=== PATIENT | female | born 1980 | race Caucasian/White ===

== ENCOUNTER 2018-08-10 21:11 | Emergency (ER) | payer OTHER ==
[~2018-08-10] VITALS: Ht 188 cm; Wt 99.8 kg
[~2018-08-10 21:11] MED LIST: BENZ100C18 PO; CEPH500C PO; CETI10CA PO; DCS100C PO; FRS325T PO; IBP600T1 PO; METH4TAB PO; Oxycodone Hcl/Acetaminophen PO; PREN-52 PO; TRIA10.8 NSEACH
[2018-08-10] MEDS ORDERED: RX-ALBUTEROL INHALER (PROAIR) 8 GM IH STA (21:32)
--- OUTSIDE RECORDS SUMMARY | 2018-08-10 21:38 | XMS REPORT ---
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 Active 693773353 Problem PTSD (post-traumatic stress disorder) F43.10 Active 40052111 Problem Adjustment disorder with anxious mood F43.22 Active 36103097 Problem Severe episode of recurrent major depressive disorder, without psychotic features F33.2 Active 76559622 Problem Adjustment disorder with depressed mood F43.21 Active [id number] ALLERGIES No Information ENCOUNTERS Encounter Location Date Diagnosis [place] [id number] [place] [address]4815- 6966 20 Jan, 2018 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 ; Adjustment disorder with depressed mood F43.21 ; Adjustment disorder with anxious mood F43.22 ; PTSD (post-traumatic stress disorder) F43.10 and Attention deficit hyperactivity disorder (ADHD), unspecified ADHD type F90.9 [facility] [address] [place] [id number] [place] [address] 24680- 5443 Jan, 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 [facility] [id number] [place] [address] 94540- 0926 14 Dec, 2017 Adjustment disorder with anxious mood F43.22 ; Severe episode of recurrent major depressive disorder, without psychotic features F33.2 and Adjustment disorder with depressed mood F43.21 [facility] [id number] [address] 13 Feb, 2018 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 [place] [address] [place] [id number] [place] [address] 93953- 6854 08 Dec, 2017 PTSD (post-traumatic stress disorder) F43.10 ; Adjustment disorder with anxious mood F43.22 ; Severe episode of recurrent major depressive disorder, without psychotic features F33.2 ; Adjustment disorder with depressed mood F43.21 and Disappearance and of family member Z63.4 [place] [address] 9[address]54- 8968 Oct, Adjustment disorder with anxious mood F43.22 and PTSD (post- traumatic stress disorder) F43.10 [place] [address] 45672- 5115 Sep, Adjustment disorder with anxious mood F43.22 and PTSD (post- traumatic stress disorder) F43.10 [place] [address] 14197- 1896 Sep, Adjustment disorder with anxious mood F43.22 and PTSD (post- traumatic stress disorder) F43.10 [place] [address] [place] [id number] [place] [address] 21306- 0613 Aug, Adjustment disorder with anxious mood F43.22 and PTSD (post- traumatic stress disorder) F43.10 [place] [address] [place] [id number] [place] [address] 08753- 7864 Aug, Adjustment disorder with anxious mood F43.22 and PTSD (post- traumatic stress disorder) F43.10 [place] [address] [place] [id number] [place] [address] 26431- 8641 Aug, Adjustment disorder with anxious mood F43.22 [place] [id number] [place] [address] 92053- 0847 Aug, Adjustment disorder with anxious mood F43.22 IMMUNIZATIONS No Known Immunizations SOCIAL HISTORY Never Assessed REASON FOR VISIT f/u PLAN OF CARE Activity Details Follow Up 1 Week Reason:PTSD, adjustment disorder, depression VITAL SIGNS MEDICATIONS Unknown Medications RESULTS No Results PROCEDURES Procedure Date Ordered Result Body Site Psychotherapy, patient &/family, 60 minutes, established patient Aug 26, 2017 INSTRUCTIONS MEDICATIONS ADMINISTERED No Known Medications MEDICAL (GENERAL) HISTORY Type Description Date Medical History ADHD Surgical History c section Surgical History tonsillectomy Surgical History cholecysectomy Surgical History bilateral patella replacement Surgical History back surgery Hospitalization History surgeries,
--- OUTSIDE RECORDS SUMMARY | 2018-08-10 21:38 | XMS REPORT ---
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 Active 076529507 Problem PTSD (post-traumatic stress disorder) F43.10 Active 29092341 Problem Adjustment disorder with anxious mood F43.22 Active 72021439 Problem Severe episode of recurrent major depressive disorder, without psychotic features F33.2 Active 27398001 Problem Adjustment disorder with depressed mood F43.21 Active [id number] ALLERGIES No Information ENCOUNTERS Encounter Location Date Diagnosis [place] [id number] [place] [address] 72009- 7563 20 Jan, 2018 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 ; Adjustment disorder with depressed mood F43.21 ; Adjustment disorder with anxious mood F43.22 ; PTSD (post-traumatic stress disorder) F43.10 and Attention deficit hyperactivity disorder (ADHD), unspecified ADHD type F90.9 [facility] [address] [id number] [place] [address] 98311- 8901 Jan, 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 [facility] [address] [place] [id number] [place] [address] 99722- 8961 14 Dec, 2017 Adjustment disorder with anxious mood F43.22 ; Severe episode of recurrent major depressive disorder, without psychotic features F33.2 and Adjustment disorder with depressed mood F43.21 [facility] [address] [id number] [address] 13 Feb, 2018 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 [place] [address] [place] [id number] [place] [address] 39632- 9514 08 Dec, 2017 PTSD (post-traumatic stress disorder) F43.10 ; Adjustment disorder with anxious mood F43.22 ; Severe episode of recurrent major depressive disorder, without psychotic features F33.2 ; Adjustment disorder with depressed mood F43.21 and Disappearance and of family member Z63.4 [place] [address] 04063- 0406 Oct, Adjustment disorder with anxious mood F43.22 and PTSD (post- traumatic stress disorder) F43.10 [place] [address] 14843- 8710 Sep, Adjustment disorder with anxious mood F43.22 and PTSD (post- traumatic stress disorder) F43.10 [place] [address] 69886- 9223 Sep, Adjustment disorder with anxious mood F43.22 and PTSD (post- traumatic stress disorder) F43.10 [place] [address] [place] [id number] [place] [address] 40411- 4892 Aug, Adjustment disorder with anxious mood F43.22 and PTSD (post- traumatic stress disorder) F43.10 [place] [address] [place] [id number] [place] [address] 94867- 3401 Aug, Adjustment disorder with anxious mood F43.22 and PTSD (post- traumatic stress disorder) F43.10 [place] [address] [place] [id number] [place] [address] 71773- 4443 Aug, Adjustment disorder with anxious mood F43.22 [place] [id number] [place] [address] 96974- 8341 Aug, Adjustment disorder with anxious mood F43.22 IMMUNIZATIONS No Known Immunizations SOCIAL HISTORY Never Assessed REASON FOR VISIT f/u PLAN OF CARE Activity Details Follow Up Next available, 2 Weeks Reason:Depression, anxiety VITAL SIGNS MEDICATIONS Unknown Medications RESULTS No Results PROCEDURES Procedure Date Ordered Result Body Site Psychotherapy, patient &/family, 30 minutes, established patient Oct 23, 2017 INSTRUCTIONS MEDICATIONS ADMINISTERED No Known Medications MEDICAL (GENERAL) HISTORY Type Description Date Medical History ADHD Surgical History c section Surgical History tonsillectomy Surgical History cholecysectomy Surgical History bilateral patella replacement Surgical History back surgery Hospitalization History surgeries,
--- OUTSIDE RECORDS SUMMARY | 2018-08-10 21:38 | XMS REPORT ---
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 Active 772159461 Problem PTSD (post-traumatic stress disorder) F43.10 Active 22291877 Problem Adjustment disorder with anxious mood F43.22 Active 12952155 Problem Severe episode of recurrent major depressive disorder, without psychotic features F33.2 Active 39628220 Problem Adjustment disorder with depressed mood F43.21 Active [id number] ALLERGIES No Information ENCOUNTERS Encounter Location Date Diagnosis [place] [id number] [place] [address] 79872- 5931 20 Jan, 2018 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 ; Adjustment disorder with depressed mood F43.21 ; Adjustment disorder with anxious mood F43.22 ; PTSD (post-traumatic stress disorder) F43.10 and Attention deficit hyperactivity disorder (ADHD), unspecified ADHD type F90.9 [facility] [address] [id number] [place] [address] 16070- 3727 Jan, 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 [facility] [id number] [place] [address] 49676- 8979 14 Dec, 2017 Adjustment disorder with anxious mood F43.22 ; Severe episode of recurrent major depressive disorder, without psychotic features F33.2 and Adjustment disorder with depressed mood F43.21 [facility] [address] [id number] [address] 13 Feb, 2018 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 [place] [address] [id number] [place] [address] 50070- 4728 08 Dec, 2017 PTSD (post-traumatic stress disorder) F43.10 ; Adjustment disorder with anxious mood F43.22 ; Severe episode of recurrent major depressive disorder, without psychotic features F33.2 ; Adjustment disorder with depressed mood F43.21 and Disappearance and of family member Z63.4 [place] [address] 01786- 5875 Oct, Adjustment disorder with anxious mood F43.22 and PTSD (post- traumatic stress disorder) F43.10 [place] [address] 80118- 7620 Sep, Adjustment disorder with anxious mood F43.22 and PTSD (post- traumatic stress disorder) F43.10 [place] [address] 20261- 3593 Sep, Adjustment disorder with anxious mood F43.22 and PTSD (post- traumatic stress disorder) F43.10 [place] [address] [place] [id number] [place] [address] 02903- 4116 Aug, Adjustment disorder with anxious mood F43.22 and PTSD (post- traumatic stress disorder) F43.10 [place] [address] [id number] [place] [address] 85948- 1916 Aug, Adjustment disorder with anxious mood F43.22 and PTSD (post- traumatic stress disorder) F43.10 [place] [address] [id number] [place] [address] 54842- 4656 Aug, Adjustment disorder with anxious mood F43.22 [place] [id number] [place] [address] 02295- 5562 Aug, Adjustment disorder with anxious mood F43.22 IMMUNIZATIONS No Known Immunizations SOCIAL HISTORY Never Assessed REASON FOR VISIT f/u PLAN OF CARE Activity Details Follow Up 1 Week Reason:Anxiety, depression VITAL SIGNS MEDICATIONS Medication Instructions Dosage Frequency Start Date End Date Duration Status Strattera 40 MG Orally Twice a day 1 capsule 12h 13 Dec, 2017 30 days Unknown RESULTS No Results PROCEDURES Procedure Date Ordered Result Body Site Psychotherapy, patient &/family, 45 minutes, established patient February 04, 2018 INSTRUCTIONS MEDICATIONS ADMINISTERED No Known Medications MEDICAL (GENERAL) HISTORY Type Description Date Medical History ADHD Surgical History c section Surgical History tonsillectomy Surgical History cholecysectomy Surgical History bilateral patella replacement Surgical History back surgery Hospitalization History surgeries,
--- OUTSIDE RECORDS SUMMARY | 2018-08-10 21:38 | XMS REPORT ---
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 Active 527801187 Problem PTSD (post-traumatic stress disorder) F43.10 Active 92109657 Problem Adjustment disorder with anxious mood F43.22 Active 02301679 Problem Severe episode of recurrent major depressive disorder, without psychotic features F33.2 Active 87770320 Problem Adjustment disorder with depressed mood F43.21 Active 971656974 ALLERGIES No Information ENCOUNTERS Encounter Location Date Diagnosis [place] [address] [place] [address] 63518- 0013 20 Jan, 2018 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 ; Adjustment disorder with depressed mood F43.21 ; Adjustment disorder with anxious mood F43.22 ; PTSD (post-traumatic stress disorder) F43.10 and Attention deficit hyperactivity disorder (ADHD), unspecified ADHD type F90.9 [facility] [address] [id number] [place] [address] 74720- 6576 Jan, 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 [facility] [address] [id number] [place] [address] 19531- 2090 14 Dec, 2017 Adjustment disorder with anxious mood F43.22 ; Severe episode of recurrent major depressive disorder, without psychotic features F33.2 and Adjustment disorder with depressed mood F43.21 [facility] [address] [id number], [place] [address]- 27[address] 13 Feb, 2018 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 [place] [address] [id number] [place] [address] 24654- 9608 08 Dec, 2017 PTSD (post-traumatic stress disorder) F43.10 ; Adjustment disorder with anxious mood F43.22 ; Severe episode of recurrent major depressive disorder, without psychotic features F33.2 ; Adjustment disorder with depressed mood F43.21 and Disappearance and of family member Z63.4 [place] [address] 93559- 8038 Oct, Adjustment disorder with anxious mood F43.22 and PTSD (post- traumatic stress disorder) F43.10 [place] [address] [id number] [place] [address] 56207- 5623 Sep, Adjustment disorder with anxious mood F43.22 and PTSD (post- traumatic stress disorder) F43.10 [place] [address] 20528- 8559 Sep, Adjustment disorder with anxious mood F43.22 and PTSD (post- traumatic stress disorder) F43.10 [place] [address] [id number] [place] [address] 85829- 9883 Aug, Adjustment disorder with anxious mood F43.22 and PTSD (post- traumatic stress disorder) F43.10 [place] [address] [id number] [place] [address] 37912- 7272 Aug, Adjustment disorder with anxious mood F43.22 and PTSD (post- traumatic stress disorder) F43.10 [place] [address] [id number] [place] [address] 74754- 5857 Aug, Adjustment disorder with anxious mood F43.22 [place] [id number] [place] [address] 27137- 0662 Aug, Adjustment disorder with anxious mood F43.22 IMMUNIZATIONS No Known Immunizations SOCIAL HISTORY Never Assessed REASON FOR VISIT f/u PLAN OF CARE Activity Details Follow Up 2 Weeks Reason:Adjustment disorder VITAL SIGNS MEDICATIONS Unknown Medications RESULTS No Results PROCEDURES Procedure Date Ordered Result Body Site Psychotherapy, patient &/family, 45 minutes, established patient Sep 02, 2017 INSTRUCTIONS MEDICATIONS ADMINISTERED No Known Medications MEDICAL (GENERAL) HISTORY Type Description Date Medical History ADHD Surgical History c section Surgical History tonsillectomy Surgical History cholecysectomy Surgical History bilateral patella replacement Surgical History back surgery Hospitalization History surgeries,
--- OUTSIDE RECORDS SUMMARY | 2018-08-10 21:38 | XMS REPORT ---
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 Active 803801403 Problem PTSD (post-traumatic stress disorder) F43.10 Active 83689222 Problem Adjustment disorder with anxious mood F43.22 Active 06746427 Problem Severe episode of recurrent major depressive disorder, without psychotic features F33.2 Active 89504477 Problem Adjustment disorder with depressed mood F43.21 Active 062789487 ALLERGIES No Information ENCOUNTERS Encounter Location Date Diagnosis [place] [address] [place] [address] 80003- 3050 20 Jan, 2018 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 ; Adjustment disorder with depressed mood F43.21 ; Adjustment disorder with anxious mood F43.22 ; PTSD (post-traumatic stress disorder) F43.10 and Attention deficit hyperactivity disorder (ADHD), unspecified ADHD type F90.9 [facility] [address] [id number] [place] [address] 45562- 1168 Jan, 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 [facility] [id number] [place] [address] 63174- 1068 14 Dec, 2017 Adjustment disorder with anxious mood F43.22 ; Severe episode of recurrent major depressive disorder, without psychotic features F33.2 and Adjustment disorder with depressed mood F43.21 [facility] [id number] [address]- 2620 13 Feb, 2018 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 [place] [address] [place] [id number] [place] [address] 50858- 2681 08 Dec, 2017 PTSD (post-traumatic stress disorder) F43.10 ; Adjustment disorder with anxious mood F43.22 ; Severe episode of recurrent major depressive disorder, without psychotic features F33.2 ; Adjustment disorder with depressed mood F43.21 and Disappearance and of family member Z63.4 [place] [address] 02469- 7864 Oct, Adjustment disorder with anxious mood F43.22 and PTSD (post- traumatic stress disorder) F43.10 [place] [address] [place] [id number] [place] [address] 74476- 8422 Sep, Adjustment disorder with anxious mood F43.22 and PTSD (post- traumatic stress disorder) F43.10 [place] [address] 87939- 7465 Sep, Adjustment disorder with anxious mood F43.22 and PTSD (post- traumatic stress disorder) F43.10 [place] [address] [place] [id number] [place] [address] 28740- 5511 Aug, Adjustment disorder with anxious mood F43.22 and PTSD (post- traumatic stress disorder) F43.10 [place] [address] [place] [id number] [place] [address] 89950- 3942 Aug, Adjustment disorder with anxious mood F43.22 and PTSD (post- traumatic stress disorder) F43.10 [place] [address] [place] [id number] [place] [address] 09044- 1350 Aug, Adjustment disorder with anxious mood F43.22 [place] [id number] [place] [address] 19157- 2593 Aug, Adjustment disorder with anxious mood F43.22 IMMUNIZATIONS No Known Immunizations SOCIAL HISTORY Never Assessed REASON FOR VISIT f/u PLAN OF CARE Activity Details Follow Up 1 Week Reason:Adjustment disorder, anxiety VITAL SIGNS MEDICATIONS Unknown Medications RESULTS No Results PROCEDURES Procedure Date Ordered Result Body Site Psychotherapy, patient &/family, 45 minutes, established patient Sep 11, 2017 INSTRUCTIONS MEDICATIONS ADMINISTERED No Known Medications MEDICAL (GENERAL) HISTORY Type Description Date Medical History ADHD Surgical History c section Surgical History tonsillectomy Surgical History cholecysectomy Surgical History bilateral patella replacement Surgical History back surgery Hospitalization History surgeries,
--- OUTSIDE RECORDS SUMMARY | 2018-08-10 21:38 | XMS REPORT ---
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 Active 673511598 Problem PTSD (post-traumatic stress disorder) F43.10 Active 40819745 Problem Adjustment disorder with anxious mood F43.22 Active 31633611 Problem Severe episode of recurrent major depressive disorder, without psychotic features F33.2 Active 62547557 Problem Adjustment disorder with depressed mood F43.21 Active [id number] ALLERGIES No Information ENCOUNTERS Encounter Location Date Diagnosis [facility] [id number] [place] [address] 20 Jan, 2018 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 ; Adjustment disorder with depressed mood F43.21 ; Adjustment disorder with anxious mood F43.22 ; PTSD (post-traumatic stress disorder) F43.10 and Attention deficit hyperactivity disorder (ADHD), unspecified ADHD type F90.9 [facility] [id number], [place] [address] 13 Jan, 2018 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 [facility] [id number], [place] [address] 14 Dec, 2017 Adjustment disorder with anxious mood F43.22 ; Severe episode of recurrent major depressive disorder, without psychotic features F33.2 and Adjustment disorder with depressed mood F43.21 [facility] [address] [facility] [id number] [address] 13 Dec, 2017 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 [address] [address] [address] [place] [address] 08 Dec, 2017 PTSD (post-traumatic stress disorder) F43.10 ; Adjustment disorder with anxious mood F43.22 ; Severe episode of recurrent major depressive disorder, without psychotic features F33.2 ; Adjustment disorder with depressed mood F43.21 and Disappearance and of family member Z63.4 [place] [id number] [place] [address] 06 Oct, 2017 Adjustment disorder with anxious mood F43.22 and PTSD (post- traumatic stress disorder) F43.10 [place] [address] [address] Sep, Adjustment disorder with anxious mood F43.22 and PTSD (post- traumatic stress disorder) F43.10 [place] [id number] [place] [address] Sep, Adjustment disorder with anxious mood F43.22 and PTSD (post- traumatic stress disorder) F43.10 [place] [id number] [place] [address] Aug, Adjustment disorder with anxious mood F43.22 and PTSD (post- traumatic stress disorder) F43.10 [place] [id number] [place] [address] Aug, Adjustment disorder with anxious mood F43.22 and PTSD (post- traumatic stress disorder) F43.10 [place] [id number] [place] [address] Aug, Adjustment disorder with anxious mood F43.[address] [address] Aug, Adjustment disorder with anxious mood F43.22 IMMUNIZATIONS No Known Immunizations SOCIAL HISTORY Never Assessed REASON FOR VISIT Psychiatric f/u PLAN OF CARE Activity Details Follow Up 3 Weeks-, 4 Weeks Reason: VITAL SIGNS MEDICATIONS Medication Instructions Dosage Frequency Start Date End Date Duration Status Strattera 40 MG Orally Twice a day 1 capsule 12h 13 Dec, 2017 30 days Active RESULTS No Results PROCEDURES Procedure Date Ordered Result Body Site Psychotherapy, patient &/family, with E&M, 30 minutes, established patient January 28, 2018 INSTRUCTIONS MEDICATIONS ADMINISTERED No Known Medications MEDICAL (GENERAL) HISTORY Type Description Date Medical History ADHD Surgical History c section Surgical History tonsillectomy Surgical History cholecysectomy Surgical History bilateral patella replacement Surgical History back surgery Hospitalization History surgeries,
--- OUTSIDE RECORDS SUMMARY | 2018-08-10 21:38 | XMS REPORT ---
Author Author RAYMUNDO [facility] Organization 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 Active 761776359 Problem PTSD (post-traumatic stress disorder) F43.10 Active 59714275 Problem Adjustment disorder with anxious mood F43.22 Active 38996722 Problem Severe episode of recurrent major depressive disorder, without psychotic features F33.2 Active 50635704 Problem Adjustment disorder with depressed mood F43.21 Active 256886794 ALLERGIES Substance Reaction Event Type Date Status Penicillin G Sodium vomiting Drug Allergy Dec, Active Cefdinir non reactive Drug Allergy Dec, Active ENCOUNTERS Encounter Location Date Diagnosis [id number], [place] [address] Jan, 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 [address] [place] [id number] [place] [address] 08 Dec, 2017 PTSD (post-traumatic stress disorder) F43.10 ; Adjustment disorder with anxious mood F43.22 ; Severe episode of recurrent major depressive disorder, without psychotic features F33.2 ; Adjustment disorder with depressed mood F43.21 and Disappearance and of family member Z63.4 [place] [place] [id number] [place] [address] 06 Oct, 2017 Adjustment disorder with anxious mood F43.22 and PTSD (post- traumatic stress disorder) F43.10 [place] [place] [id number] [place] [address] Sep, Adjustment disorder with anxious mood F43.22 and PTSD (post- traumatic stress disorder) F43.10 [address] [place] [id number] [place] [address] Sep, Adjustment disorder with anxious mood F43.22 and PTSD (post- traumatic stress disorder) F43.10 [address] [id number] [place] [address] Aug, Adjustment disorder with anxious mood F43.22 and PTSD (post- traumatic stress disorder) F43.10 [place] [place] [id number] [place] [address] Aug, Adjustment disorder with anxious mood F43.22 and PTSD (post- traumatic stress disorder) F43.10 [place] [place] [id number] [place] [address] Aug, Adjustment disorder with anxious mood F43.22 [address] [address] [place] [address] Aug, Adjustment disorder with anxious mood F43.22 IMMUNIZATIONS No Known Immunizations SOCIAL HISTORY Never Assessed REASON FOR VISIT PLAN OF CARE Activity Details Follow Up 2 Weeks Reason:Depression VITAL SIGNS MEDICATIONS Medication Instructions Dosage Frequency Start Date End Date Duration Status Strattera 40 MG Orally Once a day 1 capsule every morning for one week then take 2 every morning 24h 13 Dec, 2017 30 day(s) Unknown RESULTS No Results PROCEDURES Procedure Date Ordered Result Body Site Psychotherapy, patient &/family, 45 minutes, established patient Jan 01, 2018 INSTRUCTIONS MEDICATIONS ADMINISTERED No Known Medications MEDICAL (GENERAL) HISTORY Type Description Date Medical History ADHD Surgical History c section Surgical History tonsillectomy Surgical History cholecysectomy Surgical History bilateral patella replacement Surgical History back surgery Hospitalization History surgeries,
--- OUTSIDE RECORDS SUMMARY | 2018-08-10 21:38 | XMS REPORT ---
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 Active 156320030 Problem PTSD (post-traumatic stress disorder) F43.10 Active 28552579 Problem Adjustment disorder with anxious mood F43.22 Active 52564152 Problem Severe episode of recurrent major depressive disorder, without psychotic features F33.2 Active 33091803 Problem Adjustment disorder with depressed mood F43.21 Active 540500881 ALLERGIES No Information ENCOUNTERS Encounter Location Date Diagnosis [address] [address] [place] [address] 20 Jan, 2018 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 ; Adjustment disorder with depressed mood F43.21 ; Adjustment disorder with anxious mood F43.22 ; PTSD (post-traumatic stress disorder) F43.10 and Attention deficit hyperactivity disorder (ADHD), unspecified ADHD type F90.9 [facility] [place] [id number] [place] [address] Jan, 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 [facility] [place] [id number] [place] [address]- [address] 14 Dec, 2017 Adjustment disorder with anxious mood F43.22 ; Severe episode of recurrent major depressive disorder, without psychotic features F33.2 and Adjustment disorder with depressed mood F43.21 [facility] [place] [id number], [place] [address] 13 Dec, 2017 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 [place] [place] [id number] [place] [address] 08 Dec, 2017 PTSD (post-traumatic stress disorder) F43.10 ; Adjustment disorder with anxious mood F43.22 ; Severe episode of recurrent major depressive disorder, without psychotic features F33.2 ; Adjustment disorder with depressed mood F43.21 and Disappearance and of family member Z63.4 [place] [address] [address] 06 Oct, 2017 Adjustment disorder with anxious mood F43.22 and PTSD (post- traumatic stress disorder) F43.10 [place] [id number] [place] [address]- [address] Sep, Adjustment disorder with anxious mood F43.22 and PTSD (post- traumatic stress disorder) F43.10 [place] [address] [address] Sep, Adjustment disorder with anxious mood F43.22 and PTSD (post- traumatic stress disorder) F43.10 [place] [id number] [place] [address]- [address] Aug, Adjustment disorder with anxious mood F43.22 and PTSD (post- traumatic stress disorder) F43.10 [place] [place] [id number] [place] [address]16[address]- [address] Aug, Adjustment disorder with anxious mood F43.22 and PTSD (post- traumatic stress disorder) F43.10 [place] [place] [id number] [place] [address] 86[address]- [address] Aug, Adjustment disorder with anxious mood F43.22 [id number] [place] [address]- [address] Aug, Adjustment disorder with anxious mood F43.22 IMMUNIZATIONS No Known Immunizations SOCIAL HISTORY Never Assessed REASON FOR VISIT intake PLAN OF CARE Activity Details Follow Up 1 Week Reason:Adjustment Disorder VITAL SIGNS MEDICATIONS Unknown Medications RESULTS No Results PROCEDURES Procedure Date Ordered Result Body Site Psych diagnostic evaluation, new patient Aug 19, 2017 INSTRUCTIONS MEDICATIONS ADMINISTERED No Known Medications MEDICAL (GENERAL) HISTORY Type Description Date Medical History ADHD Surgical History c section Surgical History tonsillectomy Surgical History cholecysectomy Surgical History bilateral patella replacement Surgical History back surgery Hospitalization History surgeries,
--- OUTSIDE RECORDS SUMMARY | 2018-08-10 21:39 | XMS REPORT | Continuity of Care Document ---
Author Author [facility] Organization [facility] Address Unknown Phone Unavailable Allergies Active Description Code Type Severity Reaction Onset Reported/Identified Relationship to Patient Clinical Status Yes acetaminophen [id number] Drug Allergy Moderate HIVES 08/20/2014 Yes hydrocodone [id number] Drug Allergy Moderate HIVES 08/20/2014 Yes [place] And Derivatives [id number] Drug Allergy Mild HIVES 10/27/2014 Yes cefaclor [id number] Drug Allergy Unknown N/A 10/27/2014 Medications There is no data. Problems Date Dx Coded Attending Type Code Diagnosis Diagnosed By 08/21/2014 KADEN WARREN MD Ot 648.93 OTH CURR COND-ANTEPARTUM 08/21/2014 KADEN WARREN MD Ot 784.2 SWELLING IN HEAD NECK 08/21/2014 KADEN WARREN MD Ot 786.05 SHORTNESS OF BREATH 08/21/2014 KADEN WARREN MD Ot 989.5 TOXIC EFFECT VENOM 08/21/2014 KADEN WARREN MD Ot E905.1 VENOMOUS SPIDER BITE 08/21/2014 JANICE PRYOR DO Ot 648.93 OTH CURR COND-ANTEPARTUM 08/21/2014 JANICE PRYOR DO Ot 786.05 SHORTNESS OF BREATH 09/20/2014 JANICE PRYOR DO Ot 623.8 NONINFLAM DIS VAGINA NEC 09/20/2014 JANICE PRYOR DO Ot 654.73 ABNORM VAGINA-ANTEPARTUM 10/27/2014 JANICE PRYOR DO Ot 655.73 DECR MOVEMNT ANTEPARTUM CONDITION 11/08/2014 JANICE PRYOR DO Ot 648.93 OTH CURR COND-ANTEPARTUM 11/08/2014 JANICE PRYOR DO Ot 789.04 ABDOMINAL PAIN, LEFT LOWER QUADRANT 11/13/2014 JANICE PRYOR DO Ot 644.13 THREAT LABOR NEC-ANTEPAR 11/19/2014 YENNY ROONEY DO Ot 278.01 MORBID OBESITY 11/19/2014 YENNY ROONEY DO Ot 285.1 AC POSTHEMORRHAG ANEMIA 11/19/2014 YENNY ROONEY DO Ot 648.22 ANEMIA-DELIVERED W P/P 11/19/2014 YENNY ROONEY DO Ot 649.11 OBESITY COMP PREG/CHILDBIRTH/PUERPERIUM, 11/19/2014 ROONEYYENNY Jessica DO Ot 661.21 UTERINE INERT NEC-DELIV 11/19/2014 YENNY ROONEY DO Ot V06.1 [id number], COMBINED [ 11/19/2014 ROONEYYENNY Jessica DO Ot V27.0 DELIVER-SINGLE LIVEBORN 11/19/2014 YENNY ROONEY DO Ot V85.41 BODY MASS INDEX 40.0-44.9, ADULT 01/11/2015 QUICK, CAR Jessica CASING SEWER Ot 625.9 01/11/2015 QUICK, CAR Jessica CASING SEWER Ot 625.9 06/20/2015 QUICK, CAR Jessica CASING SEWER Ot 625.9 06/20/2015 QUICK, ACR W CASING SEWER Ot 625.9 09/13/2015 QUICK, CAR W CASING SEWER Ot 625.9 09/13/2015 QUICK, CAR W CASING SEWER Ot 625.9 10/25/2015 QUICK, CAR W CASING SEWER Ot 625.9 10/28/2015 FENECH DO, JANICE S Ot R10.2 11/09/2015 FENECH DO, JANICE S Ot R10.2 11/28/2015 FENECH DO, JANICE S Ot R10.2 03/25/2016 QUICK, CAR Jessica CASING SEWER Ot 625.9 FEM GENITAL SYMPTOMS NOS 03/25/2016 FENECH DO, JANICE S Ot R10.2 PELVIC AND PERINEAL PAIN 03/25/2016 QUICK, CAR W CASING SEWER Ot 625.9 FEM GENITAL SYMPTOMS NOS 03/25/2016 FENECH DO, JANICE S Ot R10.2 PELVIC AND PERINEAL PAIN 06/23/2016 QUICK, CAR W CASING SEWER Ot 625.9 FEM GENITAL SYMPTOMS NOS 06/23/2016 FENECH DO, JANICE S Ot R10.2 PELVIC AND PERINEAL PAIN 09/05/2016 QUICK, CAR Jessica CASING SEWER Ot 625.9 FEM GENITAL SYMPTOMS NOS 09/05/2016 FENECH DO, JANICE S Ot R10.2 PELVIC AND PERINEAL PAIN 09/22/2016 PERRI MARTINEZ DO Ot F17.210 NICOTINE DEPENDENCE, CIGARETTES, UNCOMPL 09/22/2016 MICHELLE NEDA CONNA K Ot J45.901 UNSPECIFIED ASTHMA WITH (ACUTE) EXACERBA 09/22/2016 MICHELLE DOPERRI K Ot R06.02 SHORTNESS OF BREATH 09/24/2016 MICHELLE DOPERRI K Ot F17.210 NICOTINE DEPENDENCE, CIGARETTES, UNCOMPL 09/24/2016 MICHELLE DOPERRI K Ot J45.901 UNSPECIFIED ASTHMA WITH (ACUTE) EXACERBA 09/24/2016 MICHELLE DONEDAA K Ot R06.02 SHORTNESS OF BREATH 09/24/2016 MICHELLE DOPERRI K Ot F17.210 NICOTINE DEPENDENCE, CIGARETTES, UNCOMPL 09/24/2016 MICHELLE DOPERRI K Ot J45.901 UNSPECIFIED ASTHMA WITH (ACUTE) EXACERBA 09/24/2016 MICHELLE DONEDAA K Ot R06.02 SHORTNESS OF BREATH 09/26/2016 CAR CLEMENTE Ot 625.9 FEM GENITAL SYMPTOMS NOS 09/26/2016 FENECH , JANICE S Ot R10.2 PELVIC AND PERINEAL PAIN 09/26/2016 FENECH , JANICE S Ot R10.2 PELVIC AND PERINEAL PAIN 02/08/2017 CAR CLEMENTE Ot 625.9 FEM GENITAL SYMPTOMS NOS 02/08/2017 FENECH JANICE S Ot R10.2 PELVIC AND PERINEAL PAIN 02/08/2017 FENECH JANICE S Ot R10.2 PELVIC AND PERINEAL PAIN Procedures Code Description Performed By Performed On 72.79 VACUUM EXTRACT DEL NEC 11/17/2014 74.1 LOW CERVICAL 11/17/2014 99.77 APPL/ADMIN OF AN ADHESION BARRIER SUBSTA 11/17/2014 Results Test Result Range Complete blood count (CBC) with automated white blood cell (WBC) differential - 09/22/16 03:40 Blood leukocytes automated count (number/volume) 13.5 10*3/uL 4.3-11.0 Blood erythrocytes automated count (number/volume) 4.98 10*6/uL 4.35-5.85 Venous blood hemoglobin measurement (mass/volume) 14.7 g/dL 11.5-16.0 Blood hematocrit (volume fraction) 42 % 35-52 Automated erythrocyte mean corpuscular volume 85 [foz_us] 80-99 Automated erythrocyte mean corpuscular hemoglobin (mass per erythrocyte) 30 pg 25-34 Automated erythrocyte mean corpuscular hemoglobin concentration measurement ( mass/volume) 35 g/dL 32-36 Automated erythrocyte distribution width ratio 13.4 % 10.0-14.5 Automated blood platelet count (count/volume) 303 10*3/uL 130-400 Automated blood platelet mean volume measurement 10.2 [foz_us] 7.4-10.4 Automated blood neutrophils/100 leukocytes 47 % 42-75 Automated blood lymphocytes/100 leukocytes 45 % 12-44 Blood monocytes/100 leukocytes 4 % 0-12 Automated blood eosinophils/100 leukocytes 4 % 0-10 Automated blood basophils/100 leukocytes 1 % 0-10 Blood neutrophils automated count (number/volume) 6.3 10*3 1.8-7.8 Blood lymphocytes automated count (number/volume) 6.0 10*3 1.0-4.0 Blood monocytes automated count (number/volume) 0.6 10*3 0.0-1.0 Automated eosinophil count 0.5 10*3/uL 0.0-0.3 Automated blood basophil count (count/volume) 0.1 10*3/uL 0.0-0.1 Whole blood basic metabolic panel - 09/22/16 03:40 Serum or plasma sodium measurement (moles/volume) 140 mmol/L 135-145 Serum or plasma potassium measurement (moles/volume) 4.9 mmol/L 3.6-5.0 Serum or plasma chloride measurement (moles/volume) 108 mmol/L 98-107 Carbon dioxide 16 mmol/L 21-32 Serum or plasma anion gap determination (moles/volume) 16 mmol/L 5-14 Serum or plasma urea nitrogen measurement (mass/volume) 16 mg/dL 7-18 Serum or plasma creatinine measurement (mass/volume) 0.77 mg/dL 0.60-1.30 Serum or plasma urea nitrogen/creatinine mass ratio 21 NRG Serum or plasma creatinine measurement with calculation of estimated glomerular filtration rate > NRG Serum or plasma glucose measurement (mass/volume) 122 mg/dL 70-105 Serum or plasma calcium measurement (mass/volume) 9.6 mg/dL 8.5-10.1 Encounters ACCT No. Visit Date/Time Discharge Status Pt. Type Provider Facility Loc./Unit Complaint [id number] 09/22/2016 03:16:00 09/22/2016 04:32:00 DIS Emergency PERRI MARTINEZ DO [facility] ER SOB [id number] 09/05/2016 16:51:00 09/05/2016 23:59:59 CLS Outpatient JANICE PRYOR DO [facility] RAD CHRONIC FEMALE PELVIC PAIN [id number] 10/25/2015 15:14:00 10/25/2015 23:59:59 CLS Outpatient JANICE PRYOR DO [facility] RAD ACUTE PELVIC PAIN IN FEMALE [id number] 11/17/2014 01:32:00 11/19/2014 13:25:00 DIS Inpatient YENNY ROONEY DO [facility] LDRP LABOR [id number] 11/12/2014 23:25:00 11/13/2014 01:10:00 DIS Outpatient JANICE PRYOR DO [facility] WSo CONTRACTIONS [id number] 11/08/2014 21:45:00 11/08/2014 23:42:00 DIS Outpatient JANICE PRYOR DO [facility] WSo CTXS [id number] 11/01/2014 09:40:00 11/01/2014 23:59:59 CLS Preadmit JANICE PRYOR DO LABOR [id number] 10/27/2014 22:53:00 10/27/2014 23:55:00 DIS Outpatient JANICE PRYOR DO [facility] WSo DECREASED MOVEMENT [id number] 09/20/2014 03:14:00 09/20/2014 04:17:00 DIS Outpatient JANICE PRYOR DO [facility] WSo VAG BLEEDING, DECREASED MOVEMENT [id number] 08/21/2014 00:33:00 08/21/2014 01:30:00 DIS Outpatient JANICE PRYOR DO [facility] WSo SPIDER BITE PREG CONCERNS/OBSERVATION [id number] 08/20/2014 23:32:00 08/21/2014 00:10:00 DIS Emergency KADEN WRAREN MD [facility] ER SPIDER BITE/ALLERGIC REACTION [id number] 04/06/2013 12:51:00 04/06/2013 23:59:59 CLS Outpatient CAR CLEMENTE [facility] RAD LT PELVC PAIN [id number] 02/04/2018 09:30:00 02/04/2018 23:59:59 CLS Outpatient DALTON SOLER [facility] [id number] 09/26/2017 09:55:58 09/26/2017 23:59:59 CLS Outpatient
[2018-08-10] MEDS ORDERED: PRD20T PO (21:42)
--- NOTE | 2018-08-10 21:42 | ED Cough/URI ---
General Chief Complaint: Cough/Cold/Flu Symptoms Stated Complaint: CONGESTION Source: patient Exam Limitations: no limitations History of Present Illness Date Seen by Provider: Aug 10, 2018 Time Seen by Provider: 21:40 Initial Comments To ER with reports nasal congestion that began yesterday. She is wheezing and feels short of breath. She picked has a cough as well. Her daughter with whom she spends most of her time is ill with similar symptoms. No fevers. Timing/Duration: just prior to arrival Severity/Quality: dry cough Prior Episodes/Possible Cause: no prior episodes Associated Symptoms: cough, fever/chills, nasal congestion, shortness of breath , wheezing Allergies and Home Medications Allergies Coded Allergies: [place] And Derivatives (Unverified Allergy, Mild, HIVES, 10/27/14) cefaclor (Unverified Allergy, Unknown, 10/27/14) Home Medications Benzonatate 100 Mg Capsule, 1-2 TAB PO TID Prescribed by: PERRI MARTINEZ on 09/22/16 042 Cetirizine Hcl 10 Mg Capsule, 10 MG PO DAILY, (Reported) Docusate Sodium 100 Mg Cap, 100 MG PO BID PRN for CONSTIPATION Prescribed by: JANICE PRYOR on 11/19/14 1039 Ferrous Sulfate 325 Mg Tab, 325 MG PO DAILY@0700 Prescribed by: JANICE PRYOR on 11/19/14 1039 Ibuprofen 600 Mg Tab, 600 MG PO Q6H PRN for PAIN Prescribed by: JANICE PRYOR on 11/19/14 1039 Methylprednisolone 4 Mg Tab.ds.pk, 4 MG PO UD Prescribed by: PERRI MARTINEZ on 09/22/16421 Prednisone 20 Mg Tab, 40 MG PO DAILY Prescribed by: REJI CARVAJAL on 08/10/18 2142 Vit 15/Iron Cb/Fa/Dss 1 Each Tablet, 1 EACH PO DAILY, (Reported) Triamcinolone Acetonide 10.8 Ml [place], 2 SPRAY NSEACH BID Prescribed by: PERRI MARTINEZ on 09/22/16 042 [Oxycodone Hcl/Acetaminophen] 1 TAB TABLET, 1-2 TAB PO Q3H PRN for PAIN Prescribed by: JANICE PYROR on 11/19/14 1039 Patient Home Medication List Home Medication List Reviewed: Yes Review of Systems Review of Systems Constitutional: see HPI; No chills, No fever; malaise, weakness EENTM: see HPI Respiratory: see HPI, cough, short of breath Cardiovascular: no symptoms reported Genitourinary: no symptoms reported Musculoskeletal: no symptoms reported Skin: no symptoms reported Psychiatric/Neurological: No Symptoms Reported Hematologic/Lymphatic: No Symptoms Reported Past Sshmrxf-Xyswgk-Rtjyhh Hx Patient Social History Type Used: Cigarettes Recent Foreign Travel: No Contact w/Someone Who Travel: No Recent Hopitalizations: No Immunizations Up To Date Tetanus Booster (TDap): Unknown PED Vaccines UTD: Yes Seasonal Allergies Seasonal Allergies: Yes Past Medical History Adenoidectomy, Section, Gallbladder, Tonsillectomy Reproductive Disorders: No Female Reproductive Disorders: Menstrual Problems, Polycystic Ovarian Dis Sexually Transmitted Disease: No HIV/AIDS: No ADD/ADHD, Sleep Difficulties Adverse Reaction/Blood Tranf: No Family Medical History Diabetes mellitus 21 FATHER No Family History of: AIDS Abdominal aortic aneurysm [place]'s disease Alcoholism Alzheimer's disease Aphasia Arthritis Asthma Cancer of mouth Cardiovascular disease Cataracts Colon cancer Completed stroke Congenital disease Congenital heart disease Coronary thrombosis Cystic fibrosis Deafness or hearing loss Dementia Drug abuse Dysphasia Fibrocystic disease of breast Gastroenteritis Glaucoma Headache disorder Hypercholesterolemia Hypertension Infertility Kidney disease Myocardial infarction Neoplasm Not obtainable due to adoption Osteoporosis Parkinson's disease Prostate cancer Psychosocial problem Respiratory disorder Seizure disorder Severe allergy Thyroid disease Tuberculosis Visual disorder Physical Exam Vital Signs - First Documented 08/10/18 22:12 Pulse Ox 96 O2 Delivery Room Air Capillary Refill : Height: 6'2.00" Weight: 313lbs. 0.0oz. 141.946373sq; 40.18 BMI Method:Stated General Appearance: WD/WN, no apparent distress Eyes: Bilateral Eye Normal Inspection, Bilateral Eye PERRL, Bilateral Eye EOMI HEENT: PERRL/EOMI, normal ENT inspection, TMs normal Neck: non-tender, full range of motion, lymphadenopathy (R), lymphadenopathy (L ) Respiratory: no respiratory distress, no accessory muscle use, decreased breath sounds, wheezing Cardiovascular: regular rate, rhythm, no murmur Gastrointestinal: normal bowel sounds, non tender Neurologic/Psychiatric: alert, normal mood/affect, oriented x 3 Skin: normal color, warm/dry Progress/Results/Core Measures Suspected Sepsis SIRS Temperature: Pulse: Respiratory Rate: Laboratory Tests 08/10/18 21:43: White Blood Count 9.8 Blood Pressure / Mean: Laboratory Tests 08/10/18 21:43: Creatinine 0.89, Platelet Count 259 Results/Orders Lab Results Laboratory Tests Test 08/10/18 21:37 08/10/18 21:43 Range/Units Urine Color YELLOW Urine Clarity CLEAR Urine pH 6.5 5-9 Urine Specific [place] 1.005 L 1.016-1.022 Urine Protein NEGATIVE NEGATIVE Urine Glucose (UA) NEGATIVE NEGATIVE Urine Ketones NEGATIVE NEGATIVE Urine Nitrite NEGATIVE NEGATIVE Urine Bilirubin NEGATIVE NEGATIVE Urine Urobilinogen NORMAL NORMAL MG/DL Urine Leukocyte Esterase NEGATIVE NEGATIVE Urine RBC (Auto) 1+ H NEGATIVE Urine RBC 0-2 /HPF Urine WBC 0-2 /HPF Urine Squamous Epithelial Cells 0-2 /HPF Urine Renal Epithelial Cells NONE /HPF Urine Crystals NONE /LPF Urine Bacteria NEGATIVE /HPF Urine Casts NONE /LPF Urine Mucus NEGATIVE /LPF Urine Culture Indicated NO White Blood Count 9.8 4.3-11.0 10^3/uL Red Blood Count 4.57 4.35-5.85 10^6/uL Hemoglobin 13.7 11.5-16.0 G/DL Hematocrit 40 35-52 % Mean Corpuscular Volume 88 80-99 FL Mean Corpuscular Hemoglobin 30 25-34 PG Mean Corpuscular Hemoglobin Concent 34 32-36 G/DL Red Cell Distribution Width 13.5 10.0-14.5 % Platelet Count 259 130-400 10^3/uL Mean Platelet Volume 10.1 7.4-10.4 FL Neutrophils (%) (Auto) 68 42-75 % Lymphocytes (%) (Auto) 24 12-44 % Monocytes (%) (Auto) 5 0-12 % Eosinophils (%) (Auto) 3 0-10 % Basophils (%) (Auto) 1 0-10 % Neutrophils # (Auto) 6.6 1.8-7.8 X 10^3 Lymphocytes # (Auto) 2.3 1.0-4.0 X 10^3 Monocytes # (Auto) 0.5 0.0-1.0 X 10^3 Eosinophils # (Auto) 0.2 0.0-0.3 10^3/uL Basophils # (Auto) 0.1 0.0-0.1 10^3/uL Sodium Level 139 135-145 MMOL/L Potassium Level 3.9 3.6-5.0 MMOL/L Chloride Level 103 98-107 MMOL/L Carbon Dioxide Level 25 21-32 MMOL/L Anion Gap 11 5-14 MMOL/L Blood Urea Nitrogen 11 7-18 MG/DL Creatinine 0.89 0.60-1.30 MG/DL Estimat Glomerular Filtration Rate > 60 BUN/Creatinine Ratio 12 Glucose Level 98 70-105 MG/DL Calcium Level 9.7 8.5-10.1 MG/DL My Orders Orders - REJI CARVAJAL APRN Cbc With Automated Diff (08/10/18 21:32) Basic Metabolic Panel (08/10/18 21:32) Ua Culture If Indicated (08/10/18 21:32) Albuterol/Ipra Inhalation Soln (Duoneb I (08/10/18 21:45) Svn Small Volume Nebulizer (08/10/18 21:32) Rx-Albuterol Inhaler (Rx-Proair) (08/10/18 21:32) Prednisone Tablet (Deltasone Tablet) (08/10/18 21:45) Rx-Acetaminophen/Codeine (Rx-Tylenol #3) (08/10/18 22:45) Medications Given in ED Current Medications Medications Dose Ordered Sig/Janel Route Start Time Stop Time Status Last Admin Dose Admin Albuterol/ Ipratropium 3 ml ONCE ONCE INH 08/10/18 21:45 08/10/18 21:46 DC 08/10/18 22:11 3 ML Prednisone 40 mg ONCE ONCE PO 08/10/18 21:45 08/10/18 21:46 DC 08/10/18 22:01 40 MG Vital Signs/I&O 08/10/18 22:12 Pulse Ox 96 O2 Delivery Room Air Capillary Refill : Departure Impression Primary Impression: Viral syndrome Additional Impression: Reactive airway disease Disposition: HOME, SELF-CARE Condition: Stable Departure-Patient Inst. Decision time for Depature: 21:41 Referrals: ABEL XIAO MD (PCP/Family) Primary Care Physician Patient Instructions: VIRAL RESP ILLNESS-ADULT Add. Discharge Instructions: Because of the wheezing you would benefit from using the inhaler 2 puffs every 4 hours and the steroids as directed. Follow-up with your doctor later this week for recheck and return to the emergency room for any worsening. All discharge instructions reviewed with patient and/or family. Voiced understanding. Scripts Prednisone (Prednisone) 20 Mg Tab 40 MG PO DAILY, #6 TAB Prov: REJI CARVAJAL APRN 08/10/18 REJI CARVAJAL APRN Aug 10, 2018 21:42
[2018-08-10] MEDS ORDERED: predniSONE 20 MG TAB PO ONE (21:45)
[2018-08-10] MEDS ORDERED: RT-ALBUTEROL/IPRATROPIUM 3 ML (DUONEB) VIAL INH ONE (21:45)
[2018-08-10 21:51] LABS: BILIRUBIN,URINE NEGATIVE (NEGATIVE); CLARITY,URINE CLEAR; COLOR,URINE YELLOW; GLUCOSE, URINE (UA) NEGATIVE (NEGATIVE); KETONES,URINE NEGATIVE (NEGATIVE); LEUKOCYTE ESTERASE ,URINE NEGATIVE (NEGATIVE); NITRITE,URINE NEGATIVE (NEGATIVE); PH,URINE 6.5 (5-9); PROTEIN,URINE NEGATIVE (NEGATIVE); UROBILINOGEN,URINE NORMAL (NORMAL)
[2018-08-10 21:52] LABS: BASOPHILS # (AUTO) 0.1 10^3/uL (0.0-0.1); BASOPHILS % (AUTO) 1 % (0-10); EOSINOPHILS # (AUTO) 0.2 10^3/uL (0.0-0.3); EOSINOPHILS % (AUTO) 3 % (0-10); HEMATOCRIT 40 % (35-52); HEMOGLOBIN 13.7 G/DL (11.5-16.0); LYMPHOCYTES # (AUTO) 2.3 X 10^3 (1.0-4.0); LYMPHOCYTES % (AUTO) 24 % (12-44); MEAN CORPUSCULAR HEMOGLOBIN 30 PG (25-34); MEAN CORPUSCULAR HGB CONC 34 G/DL (32-36); MEAN CORPUSCULAR VOLUME 88 FL (80-99); MEAN PLATELET VOLUME 10.1 FL (7.4-10.4); MONOCYTES # (AUTO) 0.5 X 10^3 (0.0-1.0); MONOCYTES % (AUTO) 5 % (0-12); NEUTROPHILS # (AUTO) 6.6 X 10^3 (1.8-7.8); NEUTROPHILS % (AUTO) 68 % (42-75); PLATELET COUNT 259 10^3/uL (130-400); RED BLOOD COUNT 4.57 10^6/uL (4.35-5.85); RED CELL DISTRIBUTION WIDTH 13.5 % (10.0-14.5); WHITE BLOOD COUNT 9.8 10^3/uL (4.3-11.0)
[2018-08-10 22:00] LABS: BACTERIA,URINE NEGATIVE /HPF; RBC,URINE 0-2 /HPF; SQUAMOUS EPITHELIAL CELL,UR 0-2 /HPF; WBC,URINE 0-2 /HPF
[2018-08-10 22:10] LABS: BUN/CREATININE RATIO 12; CALCIUM 9.7 MG/DL (8.5-10.1); CARBON DIOXIDE 25 MMOL/L (21-32); CHLORIDE 103 MMOL/L (98-107); CREATININE SERUM 0.89 MG/DL (0.60-1.30); GFR ESTIMATED > 60; GLUCOSE 98 MG/DL (70-105); POTASSIUM 3.9 MMOL/L (3.6-5.0); SODIUM 139 MMOL/L (135-145)
[2018-08-10 22:43] VITALS: BP 128/83
[2018-08-10] MEDS ORDERED: RX-ACETAMINOPHEN/CODEINE TAB PPK #4 PO SCH (22:45)
== END 2018-08-10 22:45 | disposition home or self-care (01) ==
LOC: EDUNIT# 21:11 → ER 21:12
DX: B34.9 Viral infection, unspecified (principal); J45.909 Unspecified asthma, uncomplicated; F90.9 Attention-deficit hyperactivity disorder, unspecified type; Z88.8 Allergy status to other drugs, medicaments and biological substances; Z79.52 Long term (current) use of systemic steroids; Z98.890 Other specified postprocedural states; Z90.89 Acquired absence of other organs; Z87.448 Personal history of other diseases of urinary system
CPT/HCPCS: 36415; 80048; 81000; 85025; 94640

== ENCOUNTER 2018-09-23 21:00 | Emergency (ER) | payer OTHER ==
[~2018-09-23] VITALS: Ht 188 cm; Wt 117.9 kg
[~2018-09-23 21:00] MED LIST changes: +PRD20T PO
--- OUTSIDE RECORDS SUMMARY | 2018-09-23 21:08 | XMS REPORT | Continuity of Care Document ---
Author Author [facility] Organization [facility] Address Unknown Phone Unavailable Allergies Active Description Code Type Severity Reaction Onset Reported/Identified Relationship to Patient Clinical Status Yes acetaminophen [id number] Drug Allergy Moderate HIVES 08/20/2014 Yes hydrocodone [id number] Drug Allergy Moderate HIVES 08/20/2014 Yes [place] And Derivatives [id number] Drug Allergy Mild HIVES 10/27/2014 Yes cefaclor [id number] Drug Allergy Unknown N/A 10/27/2014 Medications There [...] NEC-DELIV 11/19/2014 YENNY ROONEY DO Ot V06.1 [id number], COMBINED [ 11/19/2014 ROONEYYENNY Jessica DO Ot V27.0 DELIVER-SINGLE LIVEBORN 11/19/2014 YENNY ROONEY DO Ot V85.41 BODY MASS INDEX 40.0-44.9, ADULT 01/11/2015 QUICK, CAR Jessica COMPUTER PROGRAMMER CHIEF Ot 625.9 01/11/2015 QUICK, CAR Jessica COMPUTER PROGRAMMER CHIEF Ot 625.9 06/20/2015 QUICK, CAR Jessica COMPUTER PROGRAMMER CHIEF Ot 625.9 06/20/2015 QUICK, CAR W COMPUTER PROGRAMMER CHIEF Ot 625.9 09/13/2015 QUICK, CAR W COMPUTER PROGRAMMER CHIEF Ot 625.9 09/13/2015 QUICK, CAR W COMPUTER PROGRAMMER CHIEF Ot 625.9 10/25/2015 QUICK, CAR W COMPUTER PROGRAMMER CHIEF Ot 625.9 10/28/2015 FENECH DO, JANICE S Ot R10.2 11/09/2015 FENECH DO, JANICE S Ot R10.2 11/28/2015 FENECH DO, JANICE S Ot R10.2 03/25/2016 QUICK, CAR Jessica COMPUTER PROGRAMMER CHIEF Ot 625.9 FEM GENITAL SYMPTOMS NOS 03/25/2016 FENECH DO, JANICE S Ot R10.2 PELVIC AND PERINEAL PAIN 03/25/2016 QUICK, CAR W COMPUTER PROGRAMMER CHIEF Ot 625.9 FEM GENITAL SYMPTOMS NOS 03/25/2016 FENECH DO, JANICE S Ot R10.2 PELVIC AND PERINEAL PAIN 06/23/2016 QUICK, CAR W COMPUTER PROGRAMMER CHIEF Ot 625.9 FEM GENITAL SYMPTOMS NOS 06/23/2016 FENECH DO, JANICE S Ot R10.2 PELVIC AND PERINEAL PAIN 09/05/2016 QUICK, CAR Jessica COMPUTER PROGRAMMER CHIEF Ot 625.9 FEM GENITAL SYMPTOMS NOS 09/05/2016 FENECH DO, JANICE S Ot R10.2 PELVIC AND PERINEAL PAIN 09/22/2016 MICHELLE DO, PERRI K Ot F17.210 NICOTINE DEPENDENCE, CIGARETTES, UNCOMPL 09/22/2016 MICHELLE DO, PERRI K Ot J45.901 UNSPECIFIED ASTHMA WITH (ACUTE) EXACERBA 09/22/2016 MICHELLE DO, PERRI K Ot R06.02 SHORTNESS OF BREATH 09/24/2016 MICHELLE DO, PERRI K Ot F17.210 NICOTINE DEPENDENCE, CIGARETTES, UNCOMPL 09/24/2016 MICHELLE DO, PERRI K Ot J45.901 UNSPECIFIED ASTHMA WITH (ACUTE) EXACERBA 09/24/2016 MICHELLE DO, PERRI K Ot R06.02 SHORTNESS OF BREATH 09/24/2016 MICHELLE DO, PERRI K Ot F17.210 NICOTINE DEPENDENCE, CIGARETTES, UNCOMPL 09/24/2016 MICHELLE DO, PERRI K Ot J45.901 UNSPECIFIED ASTHMA WITH (ACUTE) EXACERBA 09/24/2016 MICHELLE DO, PERRI K Ot R06.02 SHORTNESS OF BREATH 09/26/2016 CAR CLEMENTE COMPUTER PROGRAMMER CHIEF Ot 625.9 FEM GENITAL SYMPTOMS NOS 09/26/2016 FENECH DO, JANICE S Ot R10.2 PELVIC AND PERINEAL PAIN 09/26/2016 FENECH DO, JANICE S Ot R10.2 PELVIC AND PERINEAL PAIN 02/08/2017 CAR CLEMENTE COMPUTER PROGRAMMER CHIEF Ot 625.9 FEM GENITAL SYMPTOMS NOS 02/08/2017 FENECH DO, JANICE S Ot R10.2 PELVIC AND PERINEAL PAIN 02/08/2017 FENECH DO, JANICE S Ot R10.2 PELVIC AND PERINEAL PAIN 08/10/2018 CAR CLEMENTE COMPUTER PROGRAMMER CHIEF Ot 625.9 FEM GENITAL SYMPTOMS NOS 08/10/2018 FENECH DO, JANICE S Ot R10.2 PELVIC AND PERINEAL PAIN 08/10/2018 FENECH DO, JANICE S Ot R10.2 PELVIC AND PERINEAL PAIN 08/10/2018 REJI CARVAJAL APRN Ot B34.9 VIRAL INFECTION, UNSPECIFIED 08/10/2018 REJI CARVAJAL APRN Ot F90.9 ATTENTION-DEFICIT HYPERACTIVITY DISORDER 08/10/2018 REJI CARVAJAL APRN Ot J45.909 UNSPECIFIED ASTHMA, UNCOMPLICATED 08/10/2018 REJI CARVAJAL APRN Ot R09.81 NASAL CONGESTION 08/10/2018 REJI CARVAJAL APRN Ot Z79.52 PENITENTIARY (CURRENT) USE OF SYSTEMIC STER 08/10/2018 REJI CARVAJAL APRN Ot Z87.448 PERSONAL HISTORY OF OTHER DISEASES OF UR 08/10/2018 REJI CARVAJAL APRN Ot Z88.8 ALLERGY STATUS TO OTH DRUG/MEDS/BIOL SUB 08/10/2018 REJI CARVAJAL APRN Ot Z90.89 ACQUIRED ABSENCE OF OTHER ORGANS 08/10/2018 REJI CARVAJAL APRN Ot Z98.890 OTHER SPECIFIED POSTPROCEDURAL STATES 08/12/2018 REJI CARVAJAL APRN Ot B34.9 VIRAL INFECTION, UNSPECIFIED 08/12/2018 REJI CARVAJAL APRN Ot F90.9 ATTENTION-DEFICIT HYPERACTIVITY DISORDER 08/12/2018 REJI CARVAJAL APRN Ot J45.909 UNSPECIFIED ASTHMA, UNCOMPLICATED 08/12/2018 REJI CARVAJAL APRN Ot R09.81 NASAL CONGESTION 08/12/2018 REJI CARVAJAL APRN Ot 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 08/12/2018 REJI CARVAJAL APRN Ot Z87.448 PERSONAL HISTORY OF OTHER DISEASES OF UR 08/12/2018 REJI CARVAJAL APRN Ot Z88.8 ALLERGY STATUS TO OTH DRUG/MEDS/BIOL SUB 08/12/2018 REJI CARVAJAL APRN Ot Z90.89 ACQUIRED ABSENCE OF OTHER ORGANS 08/12/2018 REJI CARVAJAL APRN Ot Z98.890 OTHER SPECIFIED POSTPROCEDURAL STATES 08/12/2018 ACR CLEMENTE Ot 625.9 FEM GENITAL SYMPTOMS NOS 08/12/2018 JANICE PRYOR DO Ot R10.2 PELVIC AND PERINEAL PAIN 08/12/2018 JANICE PRYOR DO Ot R10.2 PELVIC AND PERINEAL PAIN Procedures [...] plasma calcium measurement (mass/volume) 9.6 mg/dL 8.5-10.1 Complete urinalysis with reflex to culture - 08/10/18 21:37 Urine color determination YELLOW NRG Urine clarity determination CLEAR NRG Urine pH measurement by test strip 6.5 5-9 Specific gravity of urine by test strip 1.005 1.016- 1.022 Urine protein assay by test strip, semi-quantitative NEGATIVE NEGATIVE Urine glucose detection by automated test strip NEGATIVE NEGATIVE Erythrocytes detection in urine sediment by light microscopy 1+ NEGATIVE Urine ketones detection by automated test strip NEGATIVE NEGATIVE Urine nitrite detection by test strip NEGATIVE NEGATIVE Urine total bilirubin detection by test strip NEGATIVE NEGATIVE Urine urobilinogen measurement by automated test strip (mass/volume) NORMAL NORMAL Urine leukocyte esterase detection by dipstick NEGATIVE NEGATIVE Automated urine sediment erythrocyte count by microscopy (number/high power field) [HPF] NRG Automated urine sediment leukocyte count by microscopy (number/high power field ) [HPF] NRG Bacteria detection in urine sediment by light microscopy NEGATIVE NRG Squamous epithelial cells detection in urine sediment by light microscopy 0-2 NRG Crystals detection in urine sediment by light microscopy NONE NRG Casts detection in urine sediment by light microscopy NONE NRG Mucus detection in urine sediment by light microscopy NEGATIVE NRG Complete urinalysis with reflex to culture NO NRG Renal epithelial cells detection in urine sediment by light microscopy NONE NRG Complete blood count (CBC) with automated white blood cell (WBC) differential - 08/10/18 21:43 Blood leukocytes automated count (number/volume) 9.8 10*3/uL 4.3-11.0 Blood erythrocytes automated count (number/volume) 4.57 10*6/uL 4.35-5.85 Venous blood hemoglobin measurement (mass/volume) 13.7 g/dL 11.5-16.0 Blood hematocrit (volume fraction) 40 % 35-52 Automated erythrocyte mean corpuscular volume 88 [foz_us] 80-99 Automated erythrocyte mean corpuscular hemoglobin (mass per erythrocyte) 30 pg 25-34 Automated erythrocyte mean corpuscular hemoglobin concentration measurement ( mass/volume) 34 g/dL 32-36 Automated erythrocyte distribution width ratio 13.5 % 10.0-14.5 Automated blood platelet count (count/volume) 259 10*3/uL 130-400 Automated blood platelet mean volume measurement 10.1 [foz_us] 7.4-10.4 Automated blood neutrophils/100 leukocytes 68 % 42-75 Automated blood lymphocytes/100 leukocytes 24 % 12-44 Blood monocytes/100 leukocytes 5 % 0-12 Automated blood eosinophils/100 leukocytes 3 % 0-10 Automated blood basophils/100 leukocytes 1 % 0-10 Blood neutrophils automated count (number/volume) 6.6 10*3 1.8-7.8 Blood lymphocytes automated count (number/volume) 2.3 10*3 1.0-4.0 Blood monocytes automated count (number/volume) 0.5 10*3 0.0-1.0 Automated eosinophil count 0.2 10*3/uL 0.0-0.3 Automated blood basophil count (count/volume) 0.1 10*3/uL 0.0-0.1 Whole blood basic metabolic panel - 08/10/18 21:43 Serum or plasma sodium measurement (moles/volume) 139 mmol/L 135-145 Serum or plasma potassium measurement (moles/volume) 3.9 mmol/L 3.6-5.0 Serum or plasma chloride measurement (moles/volume) 103 mmol/L 98-107 Carbon dioxide 25 mmol/L 21-32 Serum or plasma anion gap determination (moles/volume) 11 mmol/L 5-14 Serum or plasma urea nitrogen measurement (mass/volume) 11 mg/dL 7-18 Serum or plasma creatinine measurement (mass/volume) 0.89 mg/dL 0.60-1.30 Serum or plasma urea nitrogen/creatinine mass ratio 12 NRG Serum or plasma creatinine measurement with calculation of estimated glomerular filtration rate > NRG Serum or plasma glucose measurement (mass/volume) 98 mg/dL 70-105 Serum or plasma calcium measurement (mass/volume) 9.7 mg/dL 8.5-10.1 Encounters ACCT No. Visit Date/Time Discharge Status Pt. Type Provider Facility Loc./Unit Complaint [id number] 08/10/2018 21:12:00 08/10/2018 22:45:00 DIS Emergency REJI CARVAJAL APRN [facility] ER CONGESTION [id number] 09/22/2016 03:16:00 09/22/2016 04:32:00 DIS Emergency PERRI MARTINEZ DO [facility] ER SOB [id number] 09/05/2016 16:51:00 09/05/2016 23:59:59 CLS Outpatient JANICE PRYOR DO [facility] RAD CHRONIC FEMALE PELVIC PAIN [id number] 10/25/2015 15:14:00 10/25/2015 23:59:59 CLS Outpatient JANICE PRYOR DO [facility] RAD ACUTE PELVIC PAIN IN FEMALE [id number] 11/17/2014 01:32:00 11/19/2014 13:25:00 DIS Inpatient ROONEY YENNY CONN [facility] LDRP LABOR [id number] 11/12/2014 23:25:00 11/13/2014 01:10:00 DIS Outpatient JANICE PRYOR DO [facility] WSo CONTRACTIONS [id number] 11/08/2014 21:45:00 11/08/2014 23:42:00 DIS Outpatient JANICE PRYOR DO [facility] WSo CTXS [id number] 11/01/2014 09:40:00 11/01/2014 23:59:59 CLS Preadmit JANICE PRYOR DO LABOR [id number] 10/27/2014 22:53:00 10/27/2014 23:55:00 DIS Outpatient JANICE PRYOR DO [facility] WSo DECREASED MOVEMENT [id number] 09/20/2014 03:14:00 09/20/2014 04:17:00 DIS Outpatient JANICE PRYOR DO [facility] WSo VAG BLEEDING, DECREASED MOVEMENT [id number] 08/21/2014 00:33:00 08/21/2014 01:30:00 DIS Outpatient JANICE PRYOR DO [facility] WSo SPIDER BITE PREG CONCERNS/OBSERVATION [id number] 08/20/2014 23:32:00 08/21/2014 00:10:00 DIS Emergency KADEN WARREN MD [facility] ER SPIDER BITE/ALLERGIC REACTION [id number] 04/06/2013 12:51:00 04/06/2013 23:59:59 CLS Outpatient CAR CLEMENTE [facility] RAD LT PELVC PAIN [id number] 02/04/2018 09:30:00 02/04/2018 23:59:59 CLS Outpatient DALTON SOLER LAC [facility] [id number] 09/26/2017 09:55:58 09/26/2017 23:59:59 CLS Outpatient
[2018-09-23] MEDS ORDERED: RX-CYCLOBENZAPRINE 10 MG (FLEXERIL) TAB PPK#3 PO STA (21:15)
[2018-09-23] MEDS ORDERED: KETOROLAC 60 MG/2 ML VIAL IM ONE (21:15)
[2018-09-23] MEDS ORDERED: ORPHENADRINE 60 MG/2 ML (NORFLEX) AMP IM ONE (21:15)
[2018-09-23] MEDS ORDERED: RX-NAPROXEN (NAPROSYN) 250 MG TAB PPK#4 PO STA (21:15)
[2018-09-23] MEDS ORDERED: CYCL10TA9 PO (21:25)
[2018-09-23] MEDS ORDERED: NAPR-915 PO (21:25)
--- NOTE | 2018-09-23 21:25 | ED Neck-Back Pain/Injury ---
General Chief Complaint: Head/Cervical Problems Stated Complaint: PAINFUL BULGE ON NECK Source of Information: Patient History of Present Illness Date Seen by Provider: Sep 23, 2018 Time Seen by Provider: 21:08 Initial Comments PT ARRIVES VIA POV C/O SEVERE PAIN AND SPASMS TO RIGHT SIDE OF NECK--BEGAN LAST NIGHT STATES WHEN IT SPASMS, IT WILL CAUSE A BULGING OF THE MUSCLES ON THE SIDE OF HER NECK CAN'T TURN HER HEAD DUE TO PAIN/SPASMS STATES THAT PUSHING ON CERTAIN AREAS WILL CAUSE PAIN DOWN HER RIGHT ARM AND MAKE HER FINGERS TINGLE, BUT OTHERWISE DOES NOT HAVE ANY PARESTHESIAS OR MOTOR DEFICITS NO DIRECT TRAUMA TO AREA, BUT THE LAST COUPLE OF DAYS, 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 HAS HAD THIS SAME PROBLEM BEFORE, A FEW YEARS AGO. PT IS RIGHT HANDED HAS NOT TAKEN ANYTHING FOR PAIN--HAS BEEN PUTTING ICE AND HEAT ON IT AND HAS BEEN RUBBING OILS ON IT. Allergies and Home Medications Allergies Coded Allergies: [place] And Derivatives (Unverified Allergy, Mild, HIVES, 10/27/14) cefaclor (Unverified Allergy, Unknown, 10/27/14) Home Medications Cyclobenzaprine HCl 10 Mg Tablet, 10 MG PO Q8H Prescribed by: PERRI MARTINEZ on 09/23/182124 Naproxen 500 Mg Tablet, 500 MG PO BID Prescribed by: PERRI MARTINEZ on 09/23/182124 Patient Home Medication List Home Medication List Reviewed: Yes Review of Systems Constitutional: no symptoms reported EENTM: no symptoms reported Respiratory: no symptoms reported : No LMP: Sep 03, 2018 (NORMAL. NO CONTROL) Control/STD Prophylaxis: None Musculoskeletal: see HPI Skin: no symptoms reported Psychiatric/Neurological: See HPI Past Wbnoiya-Cqdvvu-Cezbfk Hx Patient Social History Alcohol Use: Denies Use Recreational Drug Use: No Smoking Status: Current Everyday Smoker (< 1.2 PPD) Type Used: Cigarettes Recent Foreign Travel: No Contact w/Someone Who Travel: No Recent Hopitalizations: No Immunizations Up To Date Tetanus Booster (TDap): Unknown PED Vaccines UTD: Yes Seasonal Allergies Seasonal Allergies: Yes Past Medical History Surgeries: Yes (BACK FUSION L4-5, BILAT PATELLA SX) Adenoidectomy, Section, Gallbladder, Orthopedic, Tonsillectomy Respiratory: No Cardiac: No Neurological: No : No Reproductive Disorders: No Female Reproductive Disorders: Menstrual Problems, Polycystic Ovarian Dis Sexually Transmitted Disease: No HIV/AIDS: No Genitourinary: No Gastrointestinal: No Musculoskeletal: Yes (SPINAL USION; PATELLA SURGERY) Chronic Back Pain Endocrine: No HEENT: No Cancer: No Psychosocial: Yes ADD/ADHD, Sleep Difficulties Integumentary: No Blood Disorders: No Adverse Reaction/Blood Tranf: No Family Medical History Diabetes mellitus 19 FATHER No Family History of: AIDS Abdominal aortic aneurysm Hand's disease Alcoholism Alzheimer's disease Aphasia Arthritis Asthma Cancer of mouth Cardiovascular disease Cataracts Colon cancer Completed stroke Congenital disease Congenital heart disease Coronary thrombosis Cystic fibrosis Deafness or hearing loss Dementia Drug abuse Dysphasia Fibrocystic disease of breast Gastroenteritis Glaucoma Headache disorder Hypercholesterolemia Hypertension Infertility Kidney disease Myocardial infarction Neoplasm Not obtainable due to adoption Osteoporosis Parkinson's disease Prostate cancer Psychosocial problem Respiratory disorder Seizure disorder Severe allergy Thyroid disease Tuberculosis Visual disorder Physical Exam Vital Signs Vital Signs - First Documented 09/23/18 21:00 Temp 97.6 Pulse 98 Resp 18 B/P (MAP) 145/83 (103) Pulse Ox 97 O2 Delivery Room Air Capillary Refill : Height, Weight, BMI Height: 6'2.00" Weight: 220lbs. 0oz. 99.235946sl; 40.18 BMI Method:Stated General Appearance: No Apparent Distress, Other (HOLDING HEAD VERY STIFFLY AND SLIGHTLY SIDEBENT TO LEFT. 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 Skin: Normal Color, Warm/Dry; No Rash; Tattoos/Piercings (TATTOOS) Progress/Results/Core Measures Results/Orders My Orders Orders - PERRI MARTINEZ DO Orphenadrine Injection (Norflex Injectio (09/23/18 21:15) Ketorolac Injection (Toradol Injection) (09/23/18 21:15) Rx-Naproxen (Rx-Naprosyn) (09/23/18 21:15) Rx-Cyclobenzaprine Tablet (Rx-Flexeril T (09/23/18 21:15) Vital Signs/I&O 09/23/18 21:00 Temp 97.6 Pulse 98 Resp 18 B/P (MAP) 145/83 (103) Pulse Ox 97 O2 Delivery Room Air Departure Impression Primary Impression: ACUTE RIGHT TRAPEZIUS MUSCLE STRAIN AND SPASMS Disposition: HOME, SELF-CARE Condition: Stable Departure-Patient Inst. Referrals: ABEL XIAO MD (PCP/Family) Primary Care Physician Patient Instructions: Cervical Muscle Strain (DC), Muscle Spasms (DC), Torticollis (DC) Add. Discharge Instructions: MOIST HEAT TO AREA AT 20 MINUTE INTERVALS FOLLOW UP WITH YOUR DR IN 2-3 DAYS IF NO BETTER All discharge instructions reviewed with patient and/or family. Voiced understanding. Scripts Cyclobenzaprine HCl (Cyclobenzaprine HCl) 10 Mg Tablet 10 MG PO Q8H, #15 TAB Prov: PERRI MARTINEZ DO 09/23/18 Naproxen (Naproxen) 500 Mg Tablet 500 MG PO BID, #20 TAB Prov: PERRI MARTINEZ DO 09/23/18 PERRI MARTINEZ DO Sep 23, 2018 21:25
[2018-09-23 21:35] VITALS: BP 145/83
== END 2018-09-23 21:36 | disposition home or self-care (01) ==
LOC: EDUNIT# 21:00 → ER 21:02
DX: S29.012A Strain of muscle and tendon of back wall of thorax, initial encounter (principal); M62.838 Other muscle spasm; F17.210 Nicotine dependence, cigarettes, uncomplicated; F90.9 Attention-deficit hyperactivity disorder, unspecified type; Z98.1 Arthrodesis status; Z88.1 Allergy status to other antibiotic agents; Z88.8 Allergy status to other drugs, medicaments and biological substances; Z90.89 Acquired absence of other organs; Z98.890 Other specified postprocedural states; X50.0XXA Overexertion from strenuous movement or load, initial encounter
CPT/HCPCS: 96372; 99284

== ENCOUNTER 2018-10-16 18:01 | Emergency (ER) | payer OTHER ==
[~2018-10-16] VITALS: Ht 188 cm; Wt 104.3 kg
[~2018-10-16 18:01] MED LIST changes: +CYCL10TA9 PO; +NAPR-915 PO
[2018-10-16] MEDS ORDERED: KETOROLAC 60 MG/2 ML VIAL IM ONE (18:45)
[2018-10-16] MEDS ORDERED: CYCL10TA9 PO (18:54)
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
[2018-10-16 19:10] VITALS: BP 129/85
--- OUTSIDE RECORDS SUMMARY | 2018-10-17 03:46 | XMS REPORT | Continuity of Care Document ---
Author Author [facility] Organization [facility] Address Unknown Phone Unavailable Allergies Active Description Code Type Severity Reaction Onset Reported/Identified Relationship to Patient Clinical Status Yes acetaminophen [id number] Drug Allergy Moderate HIVES 08/20/2014 Yes hydrocodone [id number] Drug Allergy Moderate HIVES 08/20/2014 Yes [place] And Derivatives [id number] Drug Allergy Mild HIVES 10/27/2014 Yes cefaclor [id number] Drug Allergy Unknown N/A 10/27/2014 Medications There [...] NEC-DELIV 11/19/2014 YENNY ROONEY DO Ot V06.1 [id number], COMBINED [ 11/19/2014 ROONEYYENNY Jessica DO Ot V27.0 DELIVER-SINGLE LIVEBORN 11/19/2014 YENNY ROONEY DO Ot V85.41 BODY MASS INDEX 40.0-44.9, ADULT 01/11/2015 QUICK, CAR Jessica MEDICAL TECHNOLOGIST CHIEF Ot 625.9 01/11/2015 QUICK, CAR Jessica MEDICAL TECHNOLOGIST CHIEF Ot 625.9 06/20/2015 QUICK, CAR Jessica MEDICAL TECHNOLOGIST CHIEF Ot 625.9 06/20/2015 QUICK, CAR W MEDICAL TECHNOLOGIST CHIEF Ot 625.9 09/13/2015 QUICK, CAR W MEDICAL TECHNOLOGIST CHIEF Ot 625.9 09/13/2015 QUICK, CRA W MEDICAL TECHNOLOGIST CHIEF Ot 625.9 10/25/2015 QUICK, CAR W MEDICAL TECHNOLOGIST CHIEF Ot 625.9 10/28/2015 FENECH DO, JANICE S Ot R10.2 11/09/2015 FENECH DO, JANICE S Ot R10.2 11/28/2015 FENECH DO, JANICE S Ot R10.2 03/25/2016 QUICK, CAR Jessica MEDICAL TECHNOLOGIST CHIEF Ot 625.9 FEM GENITAL SYMPTOMS NOS 03/25/2016 FENECH DO, JANICE S Ot R10.2 PELVIC AND PERINEAL PAIN 03/25/2016 QUICK, CAR W MEDICAL TECHNOLOGIST CHIEF Ot 625.9 FEM GENITAL SYMPTOMS NOS 03/25/2016 FENECH DO, JANICE S Ot R10.2 PELVIC AND PERINEAL PAIN 06/23/2016 QUICK, CAR W MEDICAL TECHNOLOGIST CHIEF Ot 625.9 FEM GENITAL SYMPTOMS NOS 06/23/2016 FENECH DO, JANICE S Ot R10.2 PELVIC AND PERINEAL PAIN 09/05/2016 QUICK, CAR Jessica MEDICAL TECHNOLOGIST CHIEF Ot 625.9 FEM GENITAL SYMPTOMS NOS [...] R06.02 SHORTNESS OF BREATH 09/26/2016 CAR CLEMENTE MEDICAL TECHNOLOGIST CHIEF Ot 625.9 FEM GENITAL SYMPTOMS NOS 09/26/2016 FENECH DO, JANICE S Ot R10.2 PELVIC AND PERINEAL PAIN 09/26/2016 FENECH DO, JANICE S Ot R10.2 PELVIC AND PERINEAL PAIN 02/08/2017 CAR CLEMENTE MEDICAL TECHNOLOGIST CHIEF Ot 625.9 FEM GENITAL SYMPTOMS NOS 02/08/2017 FENECH DO, JANICE S Ot R10.2 PELVIC AND PERINEAL PAIN 02/08/2017 FENECH DO, JANICE S Ot R10.2 PELVIC AND PERINEAL PAIN 08/10/2018 CAR CLEMENTE MEDICAL TECHNOLOGIST CHIEF Ot 625.9 FEM GENITAL SYMPTOMS NOS 08/10/2018 FENECH DO, JANICE S Ot R10.2 PELVIC AND PERINEAL PAIN 08/10/2018 FENECH DO, JANICE S Ot R10.2 PELVIC AND PERINEAL PAIN 08/10/2018 REJI CARVAJAL APRN Ot B34.9 VIRAL INFECTION, UNSPECIFIED 08/10/2018 REJI CARVAJAL APRN Ot F90.9 ATTENTION-DEFICIT HYPERACTIVITY DISORDER 08/10/2018 REJI CARVAJAL APRN Ot J45.909 UNSPECIFIED ASTHMA, UNCOMPLICATED 08/10/2018 REJI CARVAAJL APRN Ot R09.81 NASAL CONGESTION 08/10/2018 REJI CARVAJAL APRN Ot Z79.52 FPC (CURRENT) USE OF SYSTEMIC STER 08/10/2018 REJI [...] CONGESTION 08/12/2018 REJI CARVAJAL APRN Ot 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 08/12/2018 REJI CARVAJAL APRN Ot Z87.448 PERSONAL HISTORY OF OTHER DISEASES OF UR 08/12/2018 REJI CARVAJAL APRN Ot Z88.8 ALLERGY STATUS TO OTH DRUG/MEDS/BIOL SUB 08/12/2018 REJI CARVAJAL APRN Ot Z90.89 ACQUIRED ABSENCE OF OTHER ORGANS 08/12/2018 REJI CARVAJAL APRN Ot Z98.890 OTHER SPECIFIED POSTPROCEDURAL STATES 08/12/2018 CAR CLEMENTE Ot 625.9 FEM GENITAL SYMPTOMS NOS 08/12/2018 JANICE PRYOR DO S Ot R10.2 PELVIC AND PERINEAL PAIN 08/12/2018 JANICE PRYOR DO S Ot R10.2 PELVIC AND PERINEAL PAIN 09/25/2018 PERRI MARTINEZ DO Ot F17.210 NICOTINE DEPENDENCE, CIGARETTES, UNCOMPL 09/25/2018 PERRI MARTINEZ DO Ot F90.9 ATTENTION-DEFICIT HYPERACTIVITY DISORDER 09/25/2018 PERRI MARTINZE DO Ot M54.2 CERVICALGIA 09/25/2018 PERRI MARTINEZ DO Ot M62.838 OTHER MUSCLE SPASM 09/25/2018 PERRI AMRTINEZ DO Ot S29.012A STRAIN OF MUSCLE AND TENDON OF BACK WALL 09/25/2018 PERRI MARTINEZ DO Ot X50.0XXA OVEREXERTION FROM STRENUOUS MOVEMENT OR 09/25/2018 PERRI MARTINEZ DO Ot Z88.1 ALLERGY STATUS TO OTHER ANTIBIOTIC AGENT 09/25/2018 PERRI MARTINEZ DO Ot Z88.8 ALLERGY STATUS TO OTH DRUG/MEDS/BIOL SUB 09/25/2018 PERRI MARTINEZ DO Ot Z90.89 ACQUIRED ABSENCE OF OTHER ORGANS 09/25/2018 PERRI MARTINEZ DO Ot Z98.1 ARTHRODESIS STATUS 09/25/2018 PERRI MARTINEZ DO Ot Z98.890 OTHER SPECIFIED POSTPROCEDURAL STATES Procedures Code Description Performed By Performed On [...] Status Pt. Type Provider Facility Loc./Unit Complaint [id number] 09/23/2018 21:02:00 09/23/2018 21:36:00 DIS Outpatient PERRI MARTINEZ DO [facility] ER PAINFUL BULGE ON NECK [id number] 08/10/2018 21:12:00 08/10/2018 22:45:00 DIS Emergency REJI CARVAJAL APRN [facility] ER CONGESTION [id number] 09/22/2016 03:16:00 09/22/2016 04:32:00 DIS Emergency PERRI MARTINEZ DO [facility] ER SOB [id number] 09/05/2016 16:51:00 09/05/2016 23:59:59 CLS Outpatient JANICE PRYOR DO [facility] RAD CHRONIC FEMALE PELVIC PAIN [id number] 10/25/2015 15:14:00 10/25/2015 23:59:59 CLS Outpatient JANICE PRYOR DO [facility] RAD ACUTE PELVIC PAIN IN FEMALE [id number] 11/17/2014 01:32:00 11/19/2014 13:25:00 DIS Inpatient YENNY ROONEY DO [facility] LDRP LABOR [id number] 11/12/2014 23:25:00 11/13/2014 01:10:00 DIS Outpatient JANICE PRYOR DO [facility] WSo CONTRACTIONS [id number] 11/08/2014 21:45:00 11/08/2014 23:42:00 DIS Outpatient FENJANICE INGRAM DO [facility] WSo CTXS [id number] 11/01/2014 09:40:00 11/01/2014 23:59:59 CLS Preadmit JANICE PRYOR DO LABOR [id number] 10/27/2014 22:53:00 10/27/2014 23:55:00 DIS Outpatient JANIEC PRYOR DO [facility] DECREASED MOVEMENT [id number] 09/20/2014 03:14:00 09/20/2014 04:17:00 DIS Outpatient [facility], DECREASED MOVEMENT [id number] 08/21/2014 00:33:00 08/21/2014 01:30:00 DIS Outpatient JANICE PRYOR DO [facility] SPIDER BITE PREG CONCERNS/OBSERVATION [id number] 08/20/2014 23:32:00 08/21/2014 00:10:00 DIS Emergency KADEN WARREN MD [facility] ER SPIDER BITE/ALLERGIC REACTION [id number] 04/06/2013 12:51:00 04/06/2013 23:59:59 CLS Outpatient CAR CLEMENTE [facility] RAD LT PELVC PAIN [id number] 02/04/2018 09:30:00 02/04/2018 23:59:59 CLS Outpatient RYDER XOCHILTKEVINI [facility] [id number] 09/26/2017 09:55:58 09/26/2017 23:59:59 CLS Outpatient
== END 2018-10-16 19:10 | disposition home or self-care (01) ==
LOC: EDUNIT# 18:01 → ER 18:04
DX: S66.912A Strain of unspecified muscle, fascia and tendon at wrist and hand level, left hand, initial encounter (principal); S16.1XXA Strain of muscle, fascia and tendon at neck level, initial encounter; S39.012A Strain of muscle, fascia and tendon of lower back, initial encounter; F90.9 Attention-deficit hyperactivity disorder, unspecified type; R40.2142 Coma scale, eyes open, spontaneous, at arrival to emergency department; R40.2252 Coma scale, best verbal response, oriented, at arrival to emergency department; R40.2362 Coma scale, best motor response, obeys commands, at arrival to emergency department; F17.210 Nicotine dependence, cigarettes, uncomplicated; Z90.89 Acquired absence of other organs; Z98.890 Other specified postprocedural states; Z87.448 Personal history of other diseases of urinary system; Z98.1 Arthrodesis status; Z88.8 Allergy status to other drugs, medicaments and biological substances; V43.52XA Car driver injured in collision with other type car in traffic accident, initial encounter; Y92.410 Unspecified street and highway as the place of occurrence of the external cause
CPT/HCPCS: 99284

== ENCOUNTER 2018-10-19 21:15 | Emergency (ER) | payer OTHER ==
[~2018-10-19] VITALS: Ht 186.7 cm; Wt 103.0 kg
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
--- NOTE | 2018-10-19 22:04 | Diagnostic Imaging Report ---
INDICATION: Chest pain PA and lateral chest obtained at 1010 PM. Heart and mediastinal silhouette are normal in appearance. The lungs appear clear. There is no pneumothorax or pleural fluid. There is no overt bony abnormality in the chest. IMPRESSION: Negative chest. Dictated by: Dictated on workstation # [id number]
[2018-10-19 22:15] VITALS: BP 136/72
== END 2018-10-19 22:17 | disposition home or self-care (01) ==
LOC: EDUNIT# 21:15 → ER 21:17
DX: S43.51XA Sprain of right acromioclavicular joint, initial encounter (principal); F90.9 Attention-deficit hyperactivity disorder, unspecified type; F17.210 Nicotine dependence, cigarettes, uncomplicated; Z88.8 Allergy status to other drugs, medicaments and biological substances; Z98.51 Tubal ligation status; Z90.89 Acquired absence of other organs; Z98.890 Other specified postprocedural states; Z87.448 Personal history of other diseases of urinary system; V48.9XXA Unspecified car occupant injured in noncollision transport accident in traffic accident, initial encounter
CPT/HCPCS: 71046; 73000

== ENCOUNTER 2019-01-03 16:28 | Emergency (ER) | payer OTHER ==
[~2019-01-03] VITALS: Ht 188 cm; Wt 117.9 kg
[2019-01-03] MEDS ORDERED: diphenhydrAMINE 50 MG/ML INJ (BENADRYL) IVP ONE (16:45)
[2019-01-03] MEDS ORDERED: methylPREDNISolone 125 MG (Solu-MEDROL) VIAL IVP ONE (16:45)
[2019-01-03] MEDS ORDERED: FAMOTIDINE 20MG/2ML IV (PEPCID) IVP ONE (16:45)
[2019-01-03 17:04] LABS: BASOPHILS % (AUTO) 0 % (0-10); EOSINOPHILS # (AUTO) 0.3 10^3/uL (0.0-0.3); EOSINOPHILS % (AUTO) 3 % (0-10); HEMATOCRIT 43 % (35-52); HEMOGLOBIN 14.7 G/DL (11.5-16.0); LYMPHOCYTES # (AUTO) 4.1 X 10^3 (1.0-4.0); LYMPHOCYTES % (AUTO) 42 % (12-44); MEAN CORPUSCULAR HEMOGLOBIN 30 PG (25-34); MEAN CORPUSCULAR HGB CONC 34 G/DL (32-36); MEAN CORPUSCULAR VOLUME 86 FL (80-99); MEAN PLATELET VOLUME 10.2 FL (7.4-10.4); MONOCYTES # (AUTO) 0.4 X 10^3 (0.0-1.0); MONOCYTES % (AUTO) 4 % (0-12); NEUTROPHILS # (AUTO) 5.1 X 10^3 (1.8-7.8); NEUTROPHILS % (AUTO) 51 % (42-75); PLATELET COUNT 297 10^3/uL (130-400); RED CELL DISTRIBUTION WIDTH 13.9 % (10.0-14.5); WHITE BLOOD COUNT 9.8 10^3/uL (4.3-11.0)
--- OUTSIDE RECORDS SUMMARY | 2019-01-03 17:10 | XMS REPORT | CCD ---
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 Name Role Phone PP Unavailable CCM Unavailable Summary Purpose Interface Exchange Insurance Providers Payer name Policy type / Coverage type Covered green party ID Effective Begin Date Effective End Date [facility] [employer] Commercial Insurance [id number] Unknown Unknown Family history Father Diagnosis Age At Onset Alcoholism Unknown Diabetes mellitus Type 2 Unknown Depression Unknown Mother Diagnosis Age At Onset Alcoholism Unknown Hypertension Unknown Brother Diagnosis Age At Onset Asthma Unknown Social History Social History Element Codes Description Effective Dates Marital status Unknown kriby 08/15/2017 Number of children Unknown 1 08/15/2017 Employment 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 Current every day smoker 3 a day 08/15/[address]: 973764810 Never drinks alcohol 08/15/2017 Allergies, Adverse Reactions, Alerts Allergies, Adverse Reactions, Alerts data not found Past Medical History Illness Codes Condition Status Onset Date Resolved Date Acute bronchitis due to other specified organisms ICD-9: 466.0 ICD-10: J20.8 Active 05/14/2018 Unknown Carpal tunnel syndrome, right upper limb ICD-9: 354.0 ICD-10: G56.01 Active 08/15/2017 Unknown Problems Condition Codes Effective Dates Condition Status Acute bronchitis due to other specified organisms ICD-9: 466.0 ICD-10: J20.8 05/14/2018 Active Carpal tunnel syndrome, right upper limb ICD-9: 354.0 ICD-10: G56.01 08/15/2017 Active Medications Medication Codes Instructions Start Date Stop Date Status Fill Instructions ProAir HFA 90 mcg/actuation aerosol inhaler RxNorm: 8849314 1 Puff(s) INH Q4-6H as needed dyspnea 11/03/2018 No Stop Date Active Zithromax Z-Sivakumar 250 mg tablet RxNorm: 408305 2 tabs first dose then 1 tab day 2-5 Tablet(s) PO daily 05/15/2018 No Stop Date Active Ventolin HFA 90 mcg/actuation aerosol inhaler RxNorm: 210625 1-2 Puff(s) INH Q4H as needed dyspnea 05/15/2018 06/13/2018 Inactive dc proair Ventolin HFA 90 mcg/actuation aerosol inhaler RxNorm: 311600 1-2 Puff(s) INH Q4H as needed dyspnea 05/15/2018 05/14/2018 Inactive Kenalog 40 mg/mL suspension for injection RxNorm: 5538222 1 Milliliter(s) Inj 05/14/2018 05/14/2018 Inactive prednisone 20 mg tablet RxNorm: 087090 2 Tablet(s) PO daily 05/18/2018 Inactive Zithromax Z-Sivakumar 250 mg tablet RxNorm: 932119 1 Tablet(s) PO daily 05/14/2018 05/14/2018 Inactive ProAir HFA 90 mcg/actuation aerosol inhaler RxNorm: 4220162 1 Puff(s) INH Q4-6H as needed dyspnea 05/14/2018 05/14/2018 Inactive Medication Administered Medication Codes Instructions Start Date Status Kenalog 40 mg/mL suspension for injection RxNorm: 1716624 1Milliliter 05/14/2018 No longer Active Immunizations No Immunization data Assessments Condition Codes Effective Dates Acute bronchitis due to other specified organisms ICD-10: J20.8 ICD-9: 466.0 05/14/2018 Carpal tunnel syndrome, right upper limb ICD-10: G56.01 ICD-9: 354.0 08/15/2017 Reason For Visit Reason For Visit Effective Dates Notes cough 05/14/2018 finger pain 08/15/2017 Results No Results data Review of Systems System Result Effective Dates Constitutional recent illness 05/14/2018 Constitutional chills 05/14/2018 Constitutional fever 05/14/2018 Eyes No eye erythema 05/14/2018 Ears/Nose/Throat/Neck nasal allergies Ears/Nose/Throat/Neck nasal discharge Ears/Nose/Throat/Neck postnasal drip Ears/Nose/Throat/Neck sinus congestion Cardiovascular No chest pain/pressure Respiratory productive sputum 05/14/2018 Respiratory cough 05/14/2018 Respiratory wheezing 05/14/2018 Gastrointestinal No abdominal pain 2017 Musculoskeletal No joint complaint 2017 Dermatologic No rash 05/14/2018 Neurologic No alteration of consciousness 05/14/2018 Neurologic No mental status change 2017 Constitutional No recent illness 2016 Constitutional No chills 08/15/2017 Constitutional No diaphoresis 08/15/2017 Constitutional No fever 08/15/2017 Eyes No eye erythema 08/15/2017 Ears/Nose/Throat/Neck No nasal discharge 08/15/2017 Ears/Nose/Throat/Neck No nasal allergies 08/15/2017 Cardiovascular No chest pain/pressure Cardiovascular No dyspnea 08/15/2017 Respiratory No cough 08/15/2017 Respiratory No dyspnea 08/15/2017 Respiratory No chest congestion 2016 Gastrointestinal No abdominal pain 2016 Gastrointestinal No constipation 2016 Gastrointestinal No diarrhea 08/15/2017 Gastrointestinal No vomiting 08/15/2017 Gastrointestinal No nausea 08/15/2017 Musculoskeletal joint complaint 2016 Dermatologic No rash 08/15/2017 Neurologic No alteration of consciousness 08/15/2017 Neurologic No mental status change 2016 Physical Exam Exam Name System Name Item Name Status Result Effective Dates Notes Full Exam - General 1994 Constitutional general appearance Overall: well developed 05/14/2018 None Full Exam - General 1994 Constitutional general appearance Overall: in no acute distress 05/14/2018 None Full Exam - General 1994 Constitutional general appearance Overall: well nourished 05/14/2018 None Full Exam - General 1994 Eyes conjunctiva /eyelids Overall: conjunctiva clear 05/14/2018 None Full Exam - General 1994 Eyes conjunctiva /eyelids Overall: eyelids normal 05/14/2018 None Full Exam - General 1994 Ears/Nose/Throat otoscopic exam Overall: external auditory canals clear 05/14/2018 None Full Exam - General 1994 Ears/Nose/Throat otoscopic exam Tympanic membrane: air- fluid level 05/14/2018 None Full Exam - General 1994 Ears/Nose/Throat lips/teeth/gingiva Overall: benign lips 05/14/2018 None Full Exam - General 1994 Ears/Nose/Throat oral cavity/pharynx/larynx Overall: oral mucosa clear 05/14/2018 None Full Exam - General 1994 Ears/Nose/Throat oral cavity/pharynx/larynx Posterior Pharynx: clear post nasal drainage 05/14/2018 None Full Exam - General 1994 Respiratory auscultation Diffuse: diminished 05/14/2018 None Full Exam - General 1994 Respiratory auscultation Lower lung field: expiratory wheezes 05/14/2018 None Full Exam - General 1994 Respiratory respiratory effort/rhythm Overall: no retractions 05/14/2018 None Full Exam - General 1994 Respiratory respiratory effort/rhythm Overall: normal rate 05/14/2018 None Full Exam - General 1994 Cardiovascular auscultation of heart Overall: regular rate 05/14/2018 None Full Exam - General 1994 Cardiovascular auscultation of heart Overall: normal heart sounds 05/14/2018 None Full Exam - General 1994 Lymphatic neck nodes Overall: anterior cervical chain benign 05/14/2018 None Full Exam - General 1994 Lymphatic neck nodes Overall: posterior cervical chain benign 05/14/2018 None Full Exam - General 1994 Neurologic cranial nerves Overall: crainial nerves 2 - 12 grossly intact 05/14/2018 None Full Exam - General 1994 Psychiatric orientation/consciousness Overall: oriented to person, place and time 05/14/2018 None Full Exam - General 1994 Psychiatric mood and affect Overall: normal mood and affect 05/14/2018 None Full Exam - General 1994 Eyes conjunctiva /eyelids Overall: cornea clear 05/14/2018 None Full Exam - General 1994 Constitutional general appearance Overall: well developed 08/15/2017 None Full Exam - General 1994 Constitutional general appearance Overall: in no acute distress 08/15/2017 None Full Exam - General 1994 Constitutional general appearance Overall: well nourished 08/15/2017 None Full Exam - General 1994 Eyes conjunctiva /eyelids Overall: conjunctiva clear 08/15/2017 None Full Exam - General 1994 Eyes conjunctiva /eyelids Overall: eyelids normal 08/15/2017 None Full Exam - General 1994 Eyes pupils and irises Overall: pupils equal, round, reactive to light and accomodation 08/15/2017 None Full Exam - General 1994 Ears/Nose/Throat otoscopic exam Overall: tympanic membranes clear 08/15/2017 None Full Exam - General 1994 Ears/Nose/Throat otoscopic exam Overall: external auditory canals clear 08/15/2017 None Full Exam - General 1994 Ears/Nose/Throat lips/teeth/gingiva Overall: benign lips 08/15/2017 None Full Exam - General 1994 Ears/Nose/Throat oral cavity/pharynx/larynx Overall: oral mucosa clear 08/15/2017 None Full Exam - General 1994 Ears/Nose/Throat oral cavity/pharynx/larynx Overall: oropharyngeal mucosa clear 08/15/2017 None Full Exam - General 1994 Respiratory respiratory effort/rhythm Overall: no retractions 08/15/2017 None Full Exam - General 1994 Respiratory respiratory effort/rhythm Overall: normal rate 08/15/2017 None Full Exam - General 1994 Respiratory auscultation Overall: breath sounds clear bilaterally 08/15/2017 None Full Exam - General 1994 Cardiovascular auscultation of heart Overall: normal heart sounds 08/15/2017 None Full Exam - General 1994 Cardiovascular auscultation of heart Overall: regular rate 08/15/2017 None Full Exam - General 1994 Cardiovascular extremities Overall: no clubbing 08/15/2017 None Full Exam - General 1994 Abdomen abdominal exam Overall: normal bowel sounds 08/15/2017 None Full Exam - General 1994 Abdomen abdominal exam Overall: no tenderness 08/15/2017 None Full Exam - General 1994 Musculoskeletal gait and station Overall: normal station 08/15/2017 None Full Exam - General 1994 Musculoskeletal gait and station Overall: normal gait 08/15/2017 None Full Exam - General 1994 Musculoskeletal head and neck Overall: head atraumatic 08/15/2017 None Full Exam - General 1994 Musculoskeletal spine, ribs and pelvis Overall: good posture 08/15/2017 None Full Exam - General 1994 Neurologic cranial nerves Overall: crainial nerves 2 - 12 grossly intact 08/15/2017 None Full Exam - General 1994 Psychiatric orientation/consciousness Overall: oriented to person, place and time 08/15/2017 None Full Exam - General 1994 Psychiatric mood and affect Overall: normal mood and affect 08/15/2017 None Full Exam - General 1994 Psychiatric appearance Overall: well-groomed, good eye contact 08/15/2017 None Full Exam - General 1994 Musculoskeletal upper extremity Palpation - wrist: positive Phalen's test 08/15/2017 None Procedures Procedure Codes Date TRIAMCINOLONE ACET INJ NOS CPT-4: J3301 05/14/2018 THER/PROPH/DIAG INJ SC/IM CPT-4: 43593 05/14/2018 Vital Signs Date Vital 05/14/2018 Heart Rate 1: 86 bpm Height: Weight: 08/15/2017 Blood Pressure 1: 106/64 Code : 8480-6 BMI: 36.3 Code : 29837-0 Heart Rate 1 : 82 bpm Height: 6'2" SpO2: 97% Weight: 283 lbs Functional Status No Functional Status data History of Present Illness Symptom Name Status Result Effective Date Notes cough Location in the lung 05/14/2018 None cough Quality acute None cough Onset and Resolution sudden in onset 05/14/2018 None cough Triggers cigarette smoking 05/14/2018 None cough Pertinent Findings fever 05/14/2018 None finger pain Location around the right index 08/15/2017 None finger pain Mechanism of injury unknown 08/15/2017 None finger pain Onset of Symptom 1 days ago 08/15/2017 None Advance Directives No Advance Directive data Encounters Encounter Performer Location Codes Date EST. PATIENT, LEVEL IV Diagnosis: Acute bronchitis due to other specified organisms[ICD10: J20.8] Norah Mccord MD, [facility] CPT-4: 18918 05/14/2018 OFFICE VISIT, NEW - LEVEL 3 Diagnosis: Carpal tunnel syndrome, right upper limb[ICD10: G56.01] Norah Mccord MD, [facility] CPT-4: 90131 08/15/2017 Plan of Care Planned Activity Notes Codes Status Date Visit Plan: Bronchitis - acute case of bronchitis identified. Pt has been given antibiotics, steroids as appropriate, and pt has been instructed to call if symptoms are not improved, or if symptoms acutely worsen. 05/14/2018 Patient Education: Patient Medication Summary Completed 05/14/2018 Visit Plan: Carpal Tunnel - pt is to use brace for wrist, pt is to start exercises to help relieve pain. The pt is to use prn antiinflammatories to manage acute pain. The patient is to call the office if the pain is worsening or does not improve. If symptoms do not improve then will refer to PT or Ortho. 08/15/2017 Appointment: Norah Pickard WPtel: [address] [place], [place] [id number] New Patient 08/15/2017 Patient Education: Patient Medication Summary Completed 08/15/2017 Patient Education: Smoking and Tobacco Addiction Completed 08/15/2017 Patient Education: Obesity Completed 08/15/2017 Instructions Comment . Bronchitis - acute case of bronchitis identified. Pt has been given antibiotics, steroids as appropriate, and pt has been instructed to call if symptoms are not improved, or if symptoms acutely worsen. . Carpal Tunnel - pt is to use brace for wrist, pt is to start exercises to help relieve pain. The pt is to use prn antiinflammatories to manage acute pain. The patient is to call the office if the pain is worsening or does not improve. If symptoms do not improve then will refer to PT or Ortho.
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
[2019-01-03 17:17] LABS: ALANINE AMINOTRANSFERASE 16 U/L (0-55); ALBUMIN 4.3 GM/DL (3.2-4.5); ALKALINE PHOSPHATASE 51 U/L (40-136); BILIRUBIN,TOTAL 0.3 MG/DL (0.1-1.0); BUN/CREATININE RATIO 14; CALCIUM 9.7 MG/DL (8.5-10.1); CARBON DIOXIDE 25 MMOL/L (21-32); CHLORIDE 105 MMOL/L (98-107); GFR ESTIMATED > 60; GLUCOSE 94 MG/DL (70-105); POTASSIUM 4.2 MMOL/L (3.6-5.0); SODIUM 138 MMOL/L (135-145); TOTAL PROTEIN 7.4 GM/DL (6.4-8.2)
--- NOTE | 2019-01-03 17:29 | NUR ---
PT REPORTS MINIMAL IMPROVEMENT, BUT DENIES ANY DISTRESS OR DISCOMFORT AT THIS TIME.
--- NOTE | 2019-01-03 19:15 | ED Integumentary General ---
General Chief Complaint: Allergic Reaction Stated Complaint: ALLERGIC REACTION/EYE SWELLING/THROAT DISCOMFORT Nursing Triage Note: PT STATES WED SHE AT AN RX BAR. STATES PEANUTS WERE IN THE RX BAR. PT VERBALIZED TOOK BENADRYL AT 0430 THIS AM. STATES SWALLOWING PROBLEMS STARTED 30 MIN PRIOR TO PT ARRIVAL. Source: patient Exam Limitations: no limitations History of Present Illness Date Seen by Provider: Jan 03, 2019 Time Seen by Provider: 16:43 Initial Comments 38-year-old female who presents to the emergency room with complaints of bilateral eye swelling, difficulty swallowing for the past 3 days. She reports that 30 minutes prior to arrival the symptoms did get worse. She took Benadryl at 0430 this a.m. but has had minimal improvement. Denies shortness of breath. Allergies and Home Medications Allergies Coded Allergies: Akins And Derivatives (Unverified Allergy, Mild, HIVES, 10/27/14) cefaclor (Unverified Allergy, Unknown, 10/27/14) Home Medications Cyclobenzaprine HCl 10 Mg Tablet, 10 MG PO Q8H PRN for SPASMS Prescribed by: JUNITO ROJAS on 10/16/18 1854 Past Ccgjdst-Cbfboo-Byqdsg Hx Patient Social History Type Used: Cigarettes 2nd Hand Smoke Exposure: No Recent Foreign Travel: No Contact w/Someone Who Travel: No Recent Infectious Disease Expo: No Recent Hopitalizations: No Immunizations Up To Date Tetanus Booster (TDap): Unknown PED Vaccines UTD: Yes Seasonal Allergies Seasonal Allergies: Yes Past Medical History Surgeries: Yes (BACK FUSION L4-5, BILAT PATELLA SX) Adenoidectomy, Section, Gallbladder, Orthopedic, Tonsillectomy Respiratory: No Cardiac: No Neurological: No Reproductive Disorders: No Female Reproductive Disorders: Menstrual Problems, Polycystic Ovarian Dis Sexually Transmitted Disease: No HIV/AIDS: No Genitourinary: No Gastrointestinal: No Musculoskeletal: Yes (SPINAL USION; PATELLA SURGERY) Chronic Back Pain Endocrine: No HEENT: No Cancer: No Psychosocial: Yes ADD/ADHD, Sleep Difficulties Integumentary: No Blood Disorders: No Adverse Reaction/Blood Tranf: No Family Medical History Diabetes mellitus 19 FATHER No Family History of: AIDS Abdominal aortic aneurysm [place]'s disease Alcoholism Alzheimer's disease Aphasia Arthritis Asthma Cancer of mouth Cardiovascular disease Cataracts Colon cancer Completed stroke Congenital disease Congenital heart disease Coronary thrombosis Cystic fibrosis Deafness or hearing loss Dementia Drug abuse Dysphasia Fibrocystic disease of breast Gastroenteritis Glaucoma Headache disorder Hypercholesterolemia Hypertension Infertility Kidney disease Myocardial infarction Neoplasm Not obtainable due to adoption Osteoporosis Parkinson's disease Prostate cancer Psychosocial problem Respiratory disorder Seizure disorder Severe allergy Thyroid disease Tuberculosis Visual disorder Physical Exam Vital Signs Vital Signs - First Documented 01/03/19 16:42 Temp 97.0 Pulse 84 Resp 18 B/P (MAP) 135/86 (102) Pulse Ox 100 O2 Delivery Room Air Capillary Refill : Less Than 3 Seconds Progress/Results/Core Measures Results/Orders Lab Results Laboratory Tests Test 01/03/19 16:44 Range/Units White Blood Count 9.8 4.3-11.0 10^3/uL Red Blood Count 4.95 4.35-5.85 10^6/uL Hemoglobin 14.7 11.5-16.0 G/DL Hematocrit 43 35-52 % Mean Corpuscular Volume 86 80-99 FL Mean Corpuscular Hemoglobin 30 25-34 PG Mean Corpuscular Hemoglobin Concent 34 32-36 G/DL Red Cell Distribution Width 13.9 10.0-14.5 % Platelet Count 297 130-400 10^3/uL Mean Platelet Volume 10.2 7.4-10.4 FL Neutrophils (%) (Auto) 51 42-75 % Lymphocytes (%) (Auto) 42 12-44 % Monocytes (%) (Auto) 4 0-12 % Eosinophils (%) (Auto) 3 0-10 % Basophils (%) (Auto) 0 0-10 % Neutrophils # (Auto) 5.1 1.8-7.8 X 10^3 Lymphocytes # (Auto) 4.1 H 1.0-4.0 X 10^3 Monocytes # (Auto) 0.4 0.0-1.0 X 10^3 Eosinophils # (Auto) 0.3 0.0-0.3 10^3/uL Basophils # (Auto) 0.0 0.0-0.1 10^3/uL Sodium Level 138 135-145 MMOL/L Potassium Level 4.2 3.6-5.0 MMOL/L Chloride Level 105 98-107 MMOL/L Carbon Dioxide Level 25 21-32 MMOL/L Anion Gap 8 5-14 MMOL/L Blood Urea Nitrogen 11 7-18 MG/DL Creatinine 0.80 0.60-1.30 MG/DL Estimat Glomerular Filtration Rate > 60 BUN/Creatinine Ratio 14 Glucose Level 94 70-105 MG/DL Calcium Level 9.7 8.5-10.1 MG/DL Corrected Calcium 9.5 8.5-10.1 MG/DL Total Bilirubin 0.3 0.1-1.0 MG/DL Aspartate Amino Transf (AST/SGOT) 14 5-34 U/L Alanine Aminotransferase (ALT/SGPT) 16 0-55 U/L Alkaline Phosphatase 51 40-136 U/L Total Protein 7.4 6.4-8.2 GM/DL Albumin 4.3 3.2-4.5 GM/DL My Orders Orders - LIBBY LYNN Methylprednisolone Sod Succ (Solu-Medrol (01/03/19 16:45) Diphenhydramine Injection (Benadryl Inje (01/03/19 16:45) Famotidine Injection (Pepcid Injection) (01/03/19 16:45) Comprehensive Metabolic Panel (01/03/19 16:41) Saline Lock/Iv-Start (01/03/19 16:41) Cbc With Automated Diff (01/03/19 16:41) Medications Given in ED Current Medications Medications Dose Ordered Sig/Janel Route Start Time Stop Time Status Last Admin Dose Admin Diphenhydramine HCl 50 mg ONCE ONCE IVP 01/03/19 16:45 01/03/19 16:46 DC 01/03/19 16:53 50 MG Famotidine 20 mg ONCE ONCE IVP 01/03/19 16:45 01/03/19 16:46 DC 01/03/19 16:53 20 MG Methylprednisolone Sodium Succinate 125 mg ONCE ONCE IVP 01/03/19 16:45 01/03/19 16:46 DC 01/03/19 16:53 125 MG Vital Signs/I&O 01/03/19 16:42 Temp 97.0 Pulse 84 Resp 18 B/P (MAP) 135/86 (102) Pulse Ox 100 O2 Delivery Room Air Blood Pressure Mean: 102 Progress Progress Note : Time: 19:12 Progress Note I have seen and evaluated the patient. I have her of her laboratory findings. Her symptoms have resolved at this time. She is no longer having facial swelling , she no longer has any trouble swallowing. She agrees with plan of care, plans for discharge, return precautions were given. Departure Impression Primary Impression: Allergic reaction to food Disposition: HOME, SELF-CARE Condition: Stable/Unchanged Departure-Patient Inst. Decision time for Depature: 19:13 Referrals: ABEL XIAO MD (PCP/Family) Primary Care Physician Patient Instructions: Food Allergy Add. Discharge Instructions: Refrain from eating peanuts until you have an allergy test. Continue to use Benadryl 50 mg every 4 hours as needed for itching, swelling, or allergic reaction as needed. You may also use Claritin or Zyrtec for additional histamine relief. Follow-up with your primary care provider within 1 week for recheck. Return back to the emergency room for worsening symptoms, shortness of breath, face or throat swelling, or any other concerns as needed. All discharge instructions reviewed with patient and/or family. Voiced understanding. LIBBY LYNN Jan 03, 2019 19:15
[2019-01-03 19:19] VITALS: BP 113/70
--- NOTE | 2019-01-03 19:19 | NUR ---
PT DISCHARGED TO HOME WITH INSTR. PT TO TAKE MEDS PRESCRIBED, F/U W/ PCP ET RETURN IF SYMPTOMS CHANGE OR GET WORSE. UNDERSTANDING VOICED, NO QUESTIONS. PT DOES REPORT IMPROVEMENT IN SYMPTOMS AT THIS TIME.
== END 2019-01-03 19:19 | disposition home or self-care (01) ==
LOC: EDUNIT# 16:28 → ER 16:29
DX: T78.1XXA Other adverse food reactions, not elsewhere classified, initial encounter (principal); H57.89 Other specified disorders of eye and adnexa; F90.9 Attention-deficit hyperactivity disorder, unspecified type; F98.8 Other specified behavioral and emotional disorders with onset usually occurring in childhood and adolescence; Z88.1 Allergy status to other antibiotic agents; Z98.1 Arthrodesis status; Z98.890 Other specified postprocedural states; Z90.89 Acquired absence of other organs; Z87.448 Personal history of other diseases of urinary system
CPT/HCPCS: 36415; 80053; 85025

== ENCOUNTER → 2019-06-15 | Outpatient (CLI) | payer OTHER | LOC: LAB 09:56 | PROVIDERS: ATTEND Nurse Practitioner | DX: N91.2 Amenorrhea, unspecified (principal) | CPT/HCPCS: 36415; 84702 ==

== ENCOUNTER 2019-06-27 21:20 | Emergency (ER) | payer OTHER ==
[~2019-06-27] VITALS: Ht 185.4 cm; Wt 114.8 kg
--- NOTE | 2019-06-27 21:24 | NUR ---
PT HERE WITH " MY DAUGHTER AND MY BEST FRIEND". DAUGHTER IS A CHILD. PT ALERT GCS 15. DR IN CEE PT SAME TIME. PT RELATES 6 WEEKS AND THIS AM STARTED TO C/O ABD " CRAMPING" PAIN RATING 6 CURRENTLY. ASSOCIATED BLOOD ON TOILET PAPER WHEN SHE WIPES ONLY. NO ACUTE BLEEDING NOTED THRU CLOTHES CURRENTLY. PT RELATES " MY OVARIES ARE ABOUT TO EXPLODE" IN REGARDS TO THE PAIN. PT REFUSES TYLENOL OR ANY MEDICINES. SAYS SHE DOESNT TAKE MEDICINES. LUNGS AND ABD ASSESSMENT DEFERRED TO DR ASSESSMENT. PT DENIES N/V/D AND HAS ? CONSTIPATION. DONE CEE PT AT 2682..
--- NOTE | 2019-06-27 21:41 | ED GU-Female ---
General Stated Complaint: CRAMPING/BLEEDING,ABOUT 8 WEEKS Source: patient, family Exam Limitations: no limitations History of Present Illness Date Seen by Provider: Jun 27, 2019 Time Seen by Provider: 21:21 Initial Comments the patient presents to ER by private conveyance with chief complaint that she woke up this morning feeling some pain in her low pelvis both sides like her ovaries were going to explode. Then she went to dinner tonight was doing fine and went to the bathroom and there is blood after she urinated. She's not having any dysuria. She has a positive test and her estimated date of conception was May 08 putting her at 19 weeks and 1 day. She's not sure about her. Because she has PCOS. She does not take any medications. She does not want anything for pain because she does not prefer to take medications. She still having pain on the right Ilya. She is a . She has not established care with a secondary connector armature yet because her plan was to move to another [place] today. She did go see [facility] a week and a half ago and had a beta hCG done here at the hospital which she was told was high. She's had one and cholecystectomy. She denies discharge fever chills nausea vomiting. She does admit to a history of chlamydia. She has been treated successfully. She also had some cervical dysplasia noted that went away on repeat Pap after her last . Allergies and Home Medications Allergies Coded Allergies: Grace And Derivatives (Unverified Allergy, Mild, HIVES, 10/27/14) cefaclor (Unverified Allergy, Unknown, 10/27/14) Home Medications Cyclobenzaprine HCl 10 Mg Tablet, 10 MG PO Q8H PRN for SPASMS Prescribed by: JUNITO ROJAS on 10/16/18 0979 Patient Home Medication List Home Medication List Reviewed: Yes Review of Systems Review of Systems Constitutional: No chills, No diaphoresis, No fever EENTM: No ear discharge, No ear pain Respiratory: No cough, No short of breath Cardiovascular: No chest pain, No edema Gastrointestinal: see HPI, abdominal pain; No constipation, No diarrhea, No nausea Genitourinary: denies discharge, denies dysuria; hematuria : Yes Expected Date of Delivery: Jan 29, 2020 Past Mufneym-Fwmkmw-Rqvalo Hx Patient Social History Alcohol Use: Denies Use Recreational Drug Use: No Smoking Status: Current Everyday Smoker Type Used: Cigarettes 2nd Hand Smoke Exposure: No Recent Foreign Travel: No Contact w/Someone Who Travel: No Recent Hopitalizations: No Immunizations Up To Date Tetanus Booster (TDap): Unknown PED Vaccines UTD: Yes Seasonal Allergies Seasonal Allergies: Yes Past Medical History Surgeries: Yes (BACK FUSION L4-5, BILAT PATELLA SX) Adenoidectomy, Section, Gallbladder, Orthopedic, Tonsillectomy Respiratory: No Cardiac: No Neurological: No Reproductive Disorders: No Female Reproductive Disorders: Menstrual Problems, Polycystic Ovarian Dis Sexually Transmitted Disease: No HIV/AIDS: No Genitourinary: No Gastrointestinal: No Musculoskeletal: Yes (SPINAL USION; PATELLA SURGERY) Chronic Back Pain Endocrine: No HEENT: No Cancer: No Psychosocial: Yes ADD/ADHD, Sleep Difficulties Integumentary: No Blood Disorders: No Adverse Reaction/Blood Tranf: No Family Medical History Diabetes mellitus 19 FATHER No Family History of: AIDS Abdominal aortic aneurysm [place]'s disease Alcoholism Alzheimer's disease Aphasia Arthritis Asthma Cancer of mouth Cardiovascular disease Cataracts Colon cancer Completed stroke Congenital disease Congenital heart disease Coronary thrombosis Cystic fibrosis Deafness or hearing loss Dementia Drug abuse Dysphasia Fibrocystic disease of breast Gastroenteritis Glaucoma Headache disorder Hypercholesterolemia Hypertension Infertility Kidney disease Myocardial infarction Neoplasm Not obtainable due to adoption Osteoporosis Parkinson's disease Prostate cancer Psychosocial problem Respiratory disorder Seizure disorder Severe allergy Thyroid disease Tuberculosis Visual disorder Physical Exam Vital Signs Vital Signs - First Documented 06/27/19 21:24 Temp 98.0 Pulse 88 Resp 20 B/P (MAP) 148/92 (110) Pulse Ox 99 O2 Delivery Room Air Capillary Refill : Height, Weight, BMI Height: 6'2.00" Weight: 260lbs. 0oz. [id number]; 40.18 BMI Method:Stated General Appearance: WD/WN, mild distress HEENT: PERRL/EOMI, pharynx normal Neck: non-tender, full range of motion, supple, normal inspection Cardiovascular: normal peripheral pulses, regular rate, rhythm Respiratory: no respiratory distress, no accessory muscle use Gastrointestinal: normal bowel sounds, soft, no organomegaly, tenderness (bilateral pelvis right worse than left. No Rovsing sign, McBurney's point tenderness or psoas signs.) Pelvic: normal external exam, no cerv. motion tender, other (mildly friable appearance of the cervical os. There is some yellow thick mucus discharge at the cervix. No blood in the vaginal vault or at the vulva.) Extremities: normal range of motion, non-tender, normal capillary refill Neurologic/Psychiatric: alert, normal mood/affect, oriented x 3 Skin: normal color, warm/dry Progress/Results/Core Measures Suspected Sepsis SIRS Temperature: Pulse: Respiratory Rate: Laboratory Tests 06/27/19 21:42: White Blood Count 15.8H Blood Pressure / Mean: Laboratory Tests 06/27/19 21:42: Creatinine 0.76, Platelet Count 282, Total Bilirubin 0.2 Results/Orders Lab Results Laboratory Tests Test 06/27/19 21:41 06/27/19 21:42 Range/Units Urine Color YELLOW Urine Clarity CLEAR Urine pH 7 5-9 Urine Specific Furlong 1.005 L 1.016-1.022 Urine Protein NEGATIVE NEGATIVE Urine Glucose (UA) NEGATIVE NEGATIVE Urine Ketones NEGATIVE NEGATIVE Urine Nitrite NEGATIVE NEGATIVE Urine Bilirubin NEGATIVE NEGATIVE Urine Urobilinogen NORMAL NORMAL MG/DL Urine Leukocyte Esterase NEGATIVE NEGATIVE Urine RBC (Auto) NEGATIVE NEGATIVE Urine RBC NONE /HPF Urine WBC NONE /HPF Urine Squamous Epithelial Cells 0-2 /HPF Urine Crystals NONE /LPF Urine Bacteria TRACE /HPF Urine Casts NONE /LPF Urine Mucus NEGATIVE /LPF Urine Culture Indicated NO White Blood Count 15.8 H 4.3-11.0 10^3/uL Red Blood Count 4.67 4.35-5.85 10^6/uL Hemoglobin 13.9 11.5-16.0 G/DL Hematocrit 41 35-52 % Mean Corpuscular Volume 87 80-99 FL Mean Corpuscular Hemoglobin 30 25-34 PG Mean Corpuscular Hemoglobin Concent 34 32-36 G/DL Red Cell Distribution Width 13.9 10.0-14.5 % Platelet Count 282 130-400 10^3/uL Mean Platelet Volume 10.5 H 7.4-10.4 FL Neutrophils (%) (Auto) 63 42-75 % Lymphocytes (%) (Auto) 30 12-44 % Monocytes (%) (Auto) 6 0-12 % Eosinophils (%) (Auto) 2 0-10 % Basophils (%) (Auto) 0 0-10 % Neutrophils # (Auto) 9.9 H 1.8-7.8 X 10^3 Lymphocytes # (Auto) 4.7 H 1.0-4.0 X 10^3 Monocytes # (Auto) 0.9 0.0-1.0 X 10^3 Eosinophils # (Auto) 0.3 0.0-0.3 10^3/uL Basophils # (Auto) 0.0 0.0-0.1 10^3/uL Neutrophils % (Manual) 64 % Lymphocytes % (Manual) 31 % Monocytes % (Manual) 2 % Eosinophils % (Manual) 2 % Basophils % (Manual) 0 % Band Neutrophils 1 % Blood Morphology Comment NORMAL Sodium Level 138 135-145 MMOL/L Potassium Level 3.9 3.6-5.0 MMOL/L Chloride Level 107 98-107 MMOL/L Carbon Dioxide Level 19 L 21-32 MMOL/L Anion Gap 12 5-14 MMOL/L Blood Urea Nitrogen 9 7-18 MG/DL Creatinine 0.76 0.60-1.30 MG/DL Estimat Glomerular Filtration Rate > 60 BUN/Creatinine Ratio 12 Glucose Level 126 H 70-105 MG/DL Calcium Level 9.4 8.5-10.1 MG/DL Corrected Calcium 9.5 8.5-10.1 MG/DL Total Bilirubin 0.2 0.1-1.0 MG/DL Aspartate Amino Transf (AST/SGOT) 10 5-34 U/L Alanine Aminotransferase (ALT/SGPT) 26 0-55 U/L Alkaline Phosphatase 61 40-136 U/L Total Protein 6.9 6.4-8.2 GM/DL Albumin 3.9 3.2-4.5 GM/DL Human Chorionic Gonadotropin, Quant 76534 H <5 MIU/ML My Orders Orders - SLY NAJERA Cbc With Automated Diff (06/27/19 21:32) Comprehensive Metabolic Panel (06/27/19 21:32) Hcg,Quantitative (06/27/19 21:32) Type And Screen (06/27/19 21:32) Ua Culture If Indicated (06/27/19 21:32) Manual Differential (06/27/19 21:42) Wet Prep (06/27/19 22:01) Vital Signs/I&O 06/27/19 06/27/19 21:24 22:40 Temp 98.0 99.4 Pulse 88 96 Resp 20 20 B/P (MAP) 148/92 (110) 140/80 (100) Pulse Ox 99 99 O2 Delivery Room Air Room Air Capillary Refill : Progress Note #1: Time: 21:42 Progress Note Patient has a suspected vaginal bleeding ongoing right-sided abdominal pain. Vitals are okay we'll put a speculum and look at the cervix and probably have to set her up in [place] to do a ultrasound to rule out an ectopic . She's not had an ultrasound yet and he would take 2 days to do an outpatient ultrasound since Saturday night. Progress Note #2: Time: 22:14 Progress Note Because of the nonspecific white count and vaginal discharge we did add a wet prep. The patient said that Katerina already ordered a GC and chlamydia so we will not repeat that test. HCG quantitative from 10 days ago was 23,851. Progress Note #3: Time: 22:53 Progress Note Wet prep was nonspecific showing some white blood cells and nothing else. Departure Impression Primary Impression: test positive Additional Impressions: Vaginal bleeding affecting early Pelvic pain affecting in first trimester, antepartum Disposition: 02 XFER SHT-TRM HOSP Condition: Stable (ERASED) Transfer Time Spoke to Accepting Phy: 23:00 Transfer Progress Notes Discussed the case with Dr. Astorga, [place], [place] ER doctor and she accepts the patient for ultrasound to rule out ectopic . Transfer Facility: [place], [place] Method of Transfer: Private Vehicle Departure-Patient Inst. Referrals: NO,LOCAL PHYSICIAN (PCP) Primary Care Physician CAR CLEMENTE (Family) Primary Care Physician SLY NAJERA Jun 27, 2019 21:41
--- NOTE | 2019-06-27 21:44 | NUR ---
LABS AND UA TO LAB BY ME
[2019-06-27 21:52] LABS: BASOPHILS % (AUTO) 0 % (0-10); EOSINOPHILS # (AUTO) 0.3 10^3/uL (0.0-0.3); EOSINOPHILS % (AUTO) 2 % (0-10); HEMATOCRIT 41 % (35-52); HEMOGLOBIN 13.9 G/DL (11.5-16.0); LYMPHOCYTES # (AUTO) 4.7 X 10^3 (1.0-4.0); LYMPHOCYTES % (AUTO) 30 % (12-44); MEAN CORPUSCULAR HEMOGLOBIN 30 PG (25-34); MEAN CORPUSCULAR HGB CONC 34 G/DL (32-36); MEAN CORPUSCULAR VOLUME 87 FL (80-99); MEAN PLATELET VOLUME 10.5 FL (7.4-10.4); MONOCYTES # (AUTO) 0.9 X 10^3 (0.0-1.0); MONOCYTES % (AUTO) 6 % (0-12); NEUTROPHILS # (AUTO) 9.9 X 10^3 (1.8-7.8); NEUTROPHILS % (AUTO) 63 % (42-75); PLATELET COUNT 282 10^3/uL (130-400); RED CELL DISTRIBUTION WIDTH 13.9 % (10.0-14.5); WHITE BLOOD COUNT 15.8 10^3/uL (4.3-11.0)
--- NOTE | 2019-06-27 22:00 | NUR ---
TECH DID PERIPHEREL STICK FOR MORE LABS. I MESSED UP DIDNT GET IT ALL WITH MY PERIPHEREL STICK FOR LABS AT 2140.
[2019-06-27 22:03] LABS: BACTERIA,URINE TRACE /HPF; BILIRUBIN,URINE NEGATIVE (NEGATIVE); CLARITY,URINE CLEAR; COLOR,URINE YELLOW; GLUCOSE, URINE (UA) NEGATIVE (NEGATIVE); KETONES,URINE NEGATIVE (NEGATIVE); LEUKOCYTE ESTERASE ,URINE NEGATIVE (NEGATIVE); NITRITE,URINE NEGATIVE (NEGATIVE); PH,URINE 7 (5-9); PROTEIN,URINE NEGATIVE (NEGATIVE); SQUAMOUS EPITHELIAL CELL,UR 0-2 /HPF; UROBILINOGEN,URINE NORMAL (NORMAL)
--- NOTE | 2019-06-27 22:04 | NUR ---
TECH IN WITH DR DE PAZ PELVIC.
[2019-06-27 22:06] LABS: BAND NEUTROPHILS 1 %; BASOPHILS % (MANUAL) 0 %; EOSINOPHILS % (MANUAL) 2 %; LYMPHOCYTES % (MANUAL) 31 %; MONOCYTES % (MANUAL) 2 %; NEUTROPHILS % (MANUAL) 64 %
[2019-06-27 22:07] LABS: RBC MORPH NORMAL
[2019-06-27 22:17] LABS: ALANINE AMINOTRANSFERASE 26 U/L (0-55); ALBUMIN 3.9 GM/DL (3.2-4.5); ALKALINE PHOSPHATASE 61 U/L (40-136); BILIRUBIN,TOTAL 0.2 MG/DL (0.1-1.0); BUN/CREATININE RATIO 12; CALCIUM 9.4 MG/DL (8.5-10.1); CARBON DIOXIDE 19 MMOL/L (21-32); CHLORIDE 107 MMOL/L (98-107); CREATININE SERUM 0.76 MG/DL (0.60-1.30); GFR ESTIMATED > 60; GLUCOSE 126 MG/DL (70-105); POTASSIUM 3.9 MMOL/L (3.6-5.0); SODIUM 138 MMOL/L (135-145); TOTAL PROTEIN 6.9 GM/DL (6.4-8.2)
--- NOTE | 2019-06-27 22:38 | NUR ---
PT REMAINS ALERT GCS 15. FRIEND AND DAUGHTER NOT IN ROOM. PT CURRENTLY TALKING ON CELL AND TEXTING BOTH. NO ACUTE BLEEDING NOTED THRU CLOTHES BACK OR OR ON SHEETS. NO ACUTE SIGHNS OF DYSPNEA NOTED.
[2019-06-27 22:40] VITALS: BP 140/80
--- NOTE | 2019-06-27 22:56 | NUR ---
REPORT TO ZOLTAN HOROWITZ
[2019-06-27 23:30] VITALS: BP 166/94
== END 2019-06-27 23:31 | disposition short-term general hospital (02) ==
LOC: EDUNIT# 21:20 → ER 21:21
DX: O20.9 Hemorrhage in early pregnancy, unspecified (principal); O26.891 Other specified pregnancy related conditions, first trimester; R10.2 Pelvic and perineal pain; F17.210 Nicotine dependence, cigarettes, uncomplicated; O99.331 Smoking (tobacco) complicating pregnancy, first trimester; O99.341 Other mental disorders complicating pregnancy, first trimester; F90.9 Attention-deficit hyperactivity disorder, unspecified type; Z90.89 Acquired absence of other organs; Z88.1 Allergy status to other antibiotic agents; Z90.49 Acquired absence of other specified parts of digestive tract; Z3A.08 8 weeks gestation of pregnancy
CPT/HCPCS: 36415; 80053; 81000; 84702; 85007; 85025; 85027; 86850; 86900; 86901; 87210